=== PATIENT | male | born 1985 | race Hispanic/Latino ===

== ENCOUNTER 2018-11-17 13:55 | Emergency (ER) | payer OTHER, SELFPAY ==
--- NOTE | 2018-11-17 14:44 | RAD REPORT ---
EXAM DESCRIPTION: RAD - Hand Right 3 View - 11/17/2018 2:33 pm CLINICAL HISTORY: Right hand pain status post injury FINDINGS: No acute fracture or dislocation is seen. Old fractures of the fourth and fifth metacarpals
--- NOTE | 2018-11-17 15:22 | EDPHYS ---
Physician Documentation [facility] Name: Aron Marrero Age: 33 yrs Sex: Male : 1985 Arrival Date: 11/17/2018 Time: 13:59 Bed 28 Private MD: Luisito Burnette T ED Physician Corey Chappell HPI: 11/17 15:19 This 33 yrs old Male presents to ER via Ambulatory with complaints of Finger kb Injury. 15:19 The patient or guardian reports a contusion, injury, pain, swelling, tenderness. The kb complaints affect the right index finger. Context: The problem was sustained outdoors, resulted from a crush injury, by a car door. Onset: The symptoms/episode began/occurred 2 day(s) ago. Modifying factors: The symptoms are alleviated by nothing, the symptoms are aggravated by nothing. Associated signs and symptoms: The patient has no apparent associated signs or symptoms. Severity of symptoms: At their worst the symptoms were moderate, in the emergency department the symptoms are unchanged. The patient has not experienced similar symptoms in the past. The patient has not recently seen a physician. Pt reports he smashed his finger in the car door 2 days ago. States his boss put a hole in his nail yesterday and it still bleeds if you apply pressure. "I think it is broken". Historical: - Allergies: 14:05 Haldol; tw2 14:05 venom-honey bee; tw2 - Home Meds: 14:05 losartan-hydrochlorothiazide 100-25 mg Oral tab 1 tab once daily [Active]; tw2 - PMHx: 14:05 Bipolar disorder; Hypertension; Seizures; tw2 - Immunization history:: Adult Immunizations Last tetanus immunization: up to date. - Social history:: Smoking status: Patient uses tobacco products, smokes one pack cigarettes per day. - Ebola Screening: : Patient denies travel to an Ebola-affected area in the 21 days before illness onset. ROS: 15:09 Constitutional: Negative for fever, chills, and weight loss, Cardiovascular: Negative kb for chest pain, palpitations, and edema, Respiratory: Negative for shortness of breath, cough, wheezing, and pleuritic chest pain, Abdomen/GI: Negative for abdominal pain, nausea, vomiting, diarrhea, and constipation, Skin: Negative for injury, rash, and discoloration, Neuro: Negative for headache, weakness, numbness, tingling, and seizure. 15:09 MS/extremity: Positive for ecchymosis, pain, swelling, tenderness, of the right index finger. Exam: 15:09 Constitutional: This is a well developed, well nourished patient who is awake, alert, kb and in no acute distress. Head/Face: Normocephalic, atraumatic. Chest/axilla: Normal chest wall appearance and motion. Nontender with no deformity. No lesions are appreciated. Cardiovascular: Regular rate and rhythm with a normal S1 and S2. No gallops, murmurs, or rubs. Normal PMI, no JVD. No pulse deficits. Respiratory: Lungs have equal breath sounds bilaterally, clear to auscultation and percussion. No rales, rhonchi or wheezes noted. No increased work of breathing, no retractions or nasal flaring. Abdomen/GI: Soft, non-tender, with normal bowel sounds. No distension or tympany. No guarding or rebound. No evidence of tenderness throughout. Neuro: Awake and alert, GCS 15, oriented to person, place, time, and situation. Cranial nerves II-XII grossly intact. Motor strength 5/5 in all extremities. Sensory grossly intact. Cerebellar exam normal. Normal gait. 15:09 Musculoskeletal/extremity: Extremities: grossly normal except: noted in the right index finger: contusion, pain, swelling, tenderness, ROM: limited active range of motion due to pain, in the right index finger, Circulation is intact in all extremities. Sensation intact. Nails: Subungual hematoma, of the right index fingernail. Vital Signs: 14:03 BP 153 / 101; Pulse 78; Resp 18; Temp 98.3(TE); Pulse Ox 99% on R/A; Weight 70.76 kg tw2 (R); Pain 7/10; 14:56 BP 131 / 83; Pulse 65; Resp 19; Pulse Ox 98% on R/A; ca1 15:20 BP 122 / 83; Pulse 68; Resp 19; Pulse Ox 100% on R/A; ca1 MDM: 14:09 Patient medically screened. kb 15:18 Data reviewed: vital signs, nurses notes. Data interpreted: Pulse oximetry: on room air kb is 98 %. Interpretation: normal. Counseling: I had a detailed discussion with the patient and/or guardian regarding: the historical points, exam findings, and any diagnostic results supporting the discharge/admit diagnosis, the need for outpatient follow up, a family practitioner, to return to the emergency department if symptoms worsen or persist or if there are any questions or concerns that arise at home. 11/17 14:12 Order name: Hand Right 3 View XRAY; Complete Time: 14:52 kb Administered Medications: No medications were administered Disposition: 15:37 Co-signature as Attending Physician, Corey Chappell MD I agree with the assessment and aruna plan of care. Disposition: 11/17/18 15:21 Discharged to Home. Impression: Contusion of right index finger with damage to nail - subungual hematoma. - Condition is Stable. - Discharge Instructions: Hand Contusion, [id number], Subungual Hematoma, [id number]. - Medication Reconciliation Form, Thank You Letter, Antibiotic Education, Prescription Opioid Use, Work release form form. - Follow up: Emergency Department; When: As needed; Reason: Worsening of condition. Follow up: Private Physician; When: 2 - 3 days; Reason: Recheck today's complaints, Continuance of care, Re-evaluation by your physician. Signatures: Dispatcher [employer] Mouna Avelar, HEMAL-C HEMAL-Corey Catalan MD MD cha Wise, Tara, RN RN tw2 Tiffanie Ahn RN RN ca1 Corrections: (The following items were deleted from the chart) 15:29 15:21 11/17/2018 15:21 Discharged to Home. Impression: Contusion of right index finger ca1 with damage to nail - subungual hematoma. Condition is Stable. Forms are Work release form, Medication Reconciliation Form, Thank You Letter, Antibiotic Education, Prescription Opioid Use. Follow up: Emergency Department; When: As needed; Reason: Worsening of condition. Follow up: Private Physician; When: 2 - 3 days; Reason: Recheck today's complaints, Continuance of care, Re-evaluation by your physician. kb
--- NOTE | 2018-11-17 15:22 | ER ---
Nurse's Notes [facility] Name: Aron Marrero Age: 33 yrs Sex: Male : 1985 Arrival Date: 11/17/2018 Time: 13:59 Bed 28 Private MD: Luisito Burnette T Diagnosis: Contusion of right index finger with damage to nail-subungual hematoma Presentation: 11/17 14:01 Presenting complaint: Patient states: Friday night i slammed my finger in my car door tw2 and it locked and stayed shut, my right hand first finger , its swollen and purple, Friday my boss heated a needle and poked a hole in the nail to relieve the pressure. Transition of care: patient was not received from another setting of care. Onset of symptoms was November 17, 2018. Risk Assessment: Do you want to hurt yourself or someone else? Patient reports no desire to harm self or others. Initial Sepsis Screen: Does the patient meet any 2 criteria? No. Patient's initial sepsis screen is negative. Does the patient have a suspected source of infection? No. Patient's initial sepsis screen is negative. Care prior to arrival: None. 14:01 Method Of Arrival: Ambulatory tw2 14:01 Acuity: JUSTINE 4 tw2 Triage Assessment: 14:03 General: Appears in no apparent distress. Behavior is calm, cooperative, appropriate tw2 for age. Pain: Complains of pain in dorsal aspect of distal phalanx of right index finger, dorsal aspect of middle phalanx of right index finger and right index fingernail. Musculoskeletal: Circulation, motion, and sensation intact. Range of motion: intact in all extremities. Injury Description: finger was smashed in car door, right index finger. Historical: - Allergies: 14:05 Haldol; tw2 14:05 venom-honey bee; tw2 - Home Meds: 14:05 losartan-hydrochlorothiazide 100-25 mg Oral tab 1 tab once daily [Active]; tw2 - PMHx: 14:05 Bipolar disorder; Hypertension; Seizures; tw2 - Immunization history:: Adult Immunizations Last tetanus immunization: up to date. - Social history:: Smoking status: Patient uses tobacco products, smokes one pack cigarettes per day. - Ebola Screening: : Patient denies travel to an Ebola-affected area in the 21 days before illness onset. Screenin:16 Abuse screen: Denies threats or abuse. Nutritional screening: No deficits noted. tw2 Tuberculosis screening: No symptoms or risk factors identified. Fall Risk None identified. 14:16 Abuse screen: Denies threats or abuse. Denies injuries from another. Nutritional ca1 screening: No deficits noted. Tuberculosis screening: No symptoms or risk factors identified. Fall Risk None identified. Assessment: 14:10 General: Appears in no apparent distress. comfortable, Behavior is calm, cooperative, ca1 appropriate for age. Pain: Complains of pain in right index fingernail Pain currently is 10 out of 10 on a pain scale. Quality of pain is described as throbbing, Pain began 2-3 days ago. Neuro: Level of Consciousness is awake, alert, obeys commands, Oriented to person, place, time, situation. Cardiovascular: Heart tones S1 S2 present Capillary refill < 3 seconds Patient's skin is warm and dry. Respiratory: Airway is patent Respiratory effort is even, unlabored, Respiratory pattern is regular, symmetrical, Breath sounds are clear bilaterally. GI: No deficits noted. No signs and/or symptoms were reported involving the gastrointestinal system. : No deficits noted. No signs and/or symptoms were reported regarding the genitourinary system. EENT: No deficits noted. No signs and/or symptoms were reported regarding the EENT system. Derm: Skin is intact, is healthy with good turgor, Skin is pink, warm \T\ dry. Musculoskeletal: Circulation, motion, and sensation intact. Capillary refill < 3 seconds, Range of motion: limited in right index fingernail Swelling present in right index fingernail. 14:56 Reassessment: Patient appears in no apparent distress at this time. Patient and/or ca1 family updated on plan of care and expected duration. Pain level reassessed. Patient is alert, oriented x 3, equal unlabored respirations, skin warm/dry/pink. 15:20 Reassessment: Patient appears in no apparent distress at this time. Patient is alert, ca1 oriented x 3, equal unlabored respirations, skin warm/dry/pink. Vital Signs: 14:03 BP 153 / 101; Pulse 78; Resp 18; Temp 98.3(TE); Pulse Ox 99% on R/A; Weight 70.76 kg tw2 (R); Pain 7/10; 14:56 BP 131 / 83; Pulse 65; Resp 19; Pulse Ox 98% on R/A; ca1 15:20 BP 122 / 83; Pulse 68; Resp 19; Pulse Ox 100% on R/A; ca1 ED Course: 13:59 Patient arrived in ED. mr 13:59 Luisito Burnette MD is Private Physician. mr 14:03 Triage completed. tw2 14:03 Arm band placed on. tw2 14:07 Bed in low position. Call light in reach. tw2 14:09 Mouna Smith FNP-C is [facility]. kb 14:09 Corey Chappell MD is Attending Physician. kb 14:13 Tiffanie Ahn, RN is Primary Nurse. ca1 14:16 Patient has correct armband on for positive identification. Pulse ox on. NIBP on. ca1 14:28 X-ray completed. Portable x-ray completed in exam room. Patient tolerated procedure ml well. 14:30 Hand Right 3 View XRAY In Process Unspecified. EDMS 15:20 No provider procedures requiring assistance completed. Patient did not have IV access ca1 during this emergency room visit. Administered Medications: No medications were administered Outcome: 15:21 Discharge ordered by MD. kb 15:29 Discharged to home ambulatory. ca1 15:29 Condition: stable 15:29 Discharge instructions given to patient, Instructed on discharge instructions, follow up and referral plans. Demonstrated understanding of instructions, follow-up care. 15:29 Patient left the ED. ca1 Signatures: Dispatcher [employer] EDMS Mouna Smith FNP-C FNP-Ckb Randy Hortensia Pinto, Pepper Cathy Henson, RN RN tw2 Tiffanie Ahn, SUJATHA RN ca1
[2018-11-18 04:54] VITALS: TEMP 98.3
[2018-11-18 04:57] VITALS: BP 122/83; O2SAT 100
== END 2018-11-17 15:29 | disposition home or self-care (01) ==
LOC: ER 13:55
DX: S60.121A Contusion of right index finger with damage to nail, initial encounter (principal); G40.909 Epilepsy, unspecified, not intractable, without status epilepticus; F31.9 Bipolar disorder, unspecified; F17.210 Nicotine dependence, cigarettes, uncomplicated; Z88.5 Allergy status to narcotic agent; Z91.030 Bee allergy status
CPT/HCPCS: 99283

== ENCOUNTER 2019-01-16 11:18 | Emergency (ER) | payer SELFPAY ==
--- NOTE | 2019-01-16 12:09 | RAD REPORT ---
EXAM DESCRIPTION: RAD - Chest Pa And Lat (2 Views) - 01/16/2019 11:59 am CLINICAL HISTORY: Congestion;Cough Chest pain. COMPARISON: CHEST SINGLE VIEW dated 04/30/2015; CHEST SINGLE VIEW dated 12/21/2007 FINDINGS: The lungs are clear. The heart is normal in size. No displaced fractures. IMPRESSION: No acute or concerning finding suspected.
[2019-01-16] MEDS ORDERED: LEVALBUTEROL 1.25 MG/3 ML NEB ONE (12:45)
[2019-01-16] MEDS ORDERED: DEXAMETHASONE 10 MG/ML VIAL ONE (12:46)
--- NOTE | 2019-01-16 13:22 | ER ---
Nurse's Notes [facility] Name: Aron Marrero Age: 33 yrs Sex: Male : 1985 Arrival Date: 01/16/2019 Time: 11:20 Bed 17 Private MD: Diagnosis: Acute bronchitis Presentation: 01/16 11:28 Presenting complaint: Patient states: cough, congestion, wheezing, chest tightness, sv productive yellow cough x 1 week. Transition of care: patient was not received from another setting of care. Onset of symptoms was January 09, 2019. Initial Sepsis Screen: Does the patient meet any 2 criteria? No. Patient's initial sepsis screen is negative. Does the patient have a suspected source of infection? No. Patient's initial sepsis screen is negative. Care prior to arrival: None. 11:28 Method Of Arrival: Ambulatory sv 11:28 Acuity: JUSTINE 3 sv 12:40 Risk Assessment: Do you want to hurt yourself or someone else? Patient reports no em desire to harm self or others. Historical: - Allergies: 11:29 Haldol; sv 11:29 venom-honey bee; sv - PMHx: 11:29 Bipolar disorder; Hypertension; Seizures; sv - Immunization history:: Adult Immunizations up to date. - Social history:: Smoking status: Patient uses tobacco products, smokes one pack cigarettes per day. - Ebola Screening: : No symptoms or risks identified at this time. Screenin:40 Abuse screen: Denies threats or abuse. Nutritional screening: No deficits noted. em Tuberculosis screening: No symptoms or risk factors identified. Fall Risk None identified. Assessment: 12:35 General: Appears in no apparent distress. distressed, Behavior is calm, cooperative, em Denies fever. Pain: Complains of pain in chest Pain currently is 5 out of 10 on a pain scale. Quality of pain is described as "tightness". Neuro: Level of Consciousness is awake, alert, obeys commands, Oriented to person, place, time, situation. Cardiovascular: Capillary refill < 3 seconds Patient's skin is warm and dry. Respiratory: Reports shortness of breath on exertion cough that is non-productive, pain with cough since 5 days Airway is patent Respiratory effort is even, unlabored, Respiratory pattern is regular, symmetrical, Breath sounds are clear bilaterally. EENT: Nares are clear Oral mucosa is moist. Throat is clear is pink Reports nasal congestion. Derm: Skin is intact, is healthy with good turgor, Skin is pink, warm \\T\\ dry. Musculoskeletal: Capillary refill < 3 seconds, Range of motion: intact in all extremities. 12:40 General: The previous assessment is accurate, call light remains within reach.. ss 13:05 Reassessment: Patient appears in no apparent distress at this time. Patient and/or em family updated on plan of care and expected duration. Pain level reassessed. Patient is alert, oriented x 3, equal unlabored respirations, skin warm/dry/pink. Patient states symptoms have improved. Vital Signs: 11:29 BP 152 / 90; Pulse 68; Resp 20; Temp 98.5; Pulse Ox 99% ; Weight 57.15 kg; Height 6 ft. sv 1 in. (185.42 cm); Pain 5/10; 13:06 BP 136 / 90; Pulse 69; Resp 18; Pulse Ox 99% on R/A; em 11:29 Body Mass Index 16.62 (57.15 kg, 185.42 cm) sv ED Course: 11:20 Patient arrived in ED. as 11:29 Triage completed. sv 11:29 Arm band placed on. sv 12:01 Chest Pa And Lat (2 Views) XRAY In Process Unspecified. EDMS 12:22 Wally Bill PA is PHCP. jmm 12:22 Julio Castillo MD is Attending Physician. jmm 12:28 Stevo Sullivan LVN is Primary Nurse. em 12:40 Patient has correct armband on for positive identification. Bed in low position. em 13:37 No provider procedures requiring assistance completed. Patient did not have IV access em during this emergency room visit. Administered Medications: 12:34 Drug: Xopenex (3) 1.25 mg Route: Inhalation; em 13:05 Follow up: Response: No adverse reaction; Marked relief of symptoms em 12:38 Drug: Dexamethasone 10 mg Route: IM; Site: right deltoid; em 13:05 Follow up: Response: No adverse reaction em Outcome: 13:22 Discharge ordered by . jmm 13:37 Discharged to home ambulatory. em 13:37 Condition: good 13:37 Discharge instructions given to patient, Instructed on discharge instructions, follow up and referral plans. medication usage, Demonstrated understanding of instructions, follow-up care, medications, Prescriptions given X 2. 13:38 Patient left the ED. em Signatures: Dispatcher [employer] Sandy Allen, SUJATHA RN Wally Santos PA PA jmm Munoz, Edgar, ASSISTIVE TECHNOLOGY SPECIALIST ASSISTIVE TECHNOLOGY SPECIALIST Yasmeen Herman Shelby, RN RN ss Corrections: (The following items were deleted from the chart) 11:29 11:28 Presenting complaint: Patient states: cough, congestion, wheezing, productive sv yellow cough x 1 week. sv
--- NOTE | 2019-01-16 13:23 | EDPHYS ---
Physician Documentation [facility] Name: Aron Marrero Age: 33 yrs Sex: Male : 1985 Arrival Date: 01/16/2019 Time: 11:20 Bed 17 Private MD: ED Physician Julio Castillo HPI: 01/16 12:20 This 33 yrs old Male presents to ER via Ambulatory with complaints of Cold jmm Symptoms. 12:20 The patient presents to the emergency department with wheezing, Current therapy: None. jmm Onset: The symptoms/episode began/occurred gradually, 1 week(s) ago. Modifying factors: The symptoms are alleviated by nothing, the symptoms are aggravated by nothing. Associated signs and symptoms: Pertinent negatives: chest pain, fever, headache. Patient complains of cough, sinus congestion for the past week. Worse in the mornings. Denies fever or chills. . Historical: - Allergies: 11:29 Haldol; sv 11:29 venom-honey bee; sv - PMHx: 11:29 Bipolar disorder; Hypertension; Seizures; sv - Immunization history:: Adult Immunizations up to date. - Social history:: Smoking status: Patient uses tobacco products, smokes one pack cigarettes per day. - Ebola Screening: : No symptoms or risks identified at this time. ROS: 12:20 Constitutional: Negative for fever, chills, and weight loss, Cardiovascular: Negative jmm for chest pain, palpitations, and edema. 12:20 Respiratory: Positive for cough, wheezing. 12:20 Abdomen/GI: Negative for abdominal pain, nausea and vomiting, diarrhea. 12:20 Neuro: Negative for headache. 12:20 All other systems are negative. Exam: 12:20 Constitutional: This is a well developed, well nourished patient who is awake, alert, jmm and in no acute distress. Head/Face: atraumatic. Eyes: EOMI, no conjunctival erythema appreciated 12:20 Neck: Trachea midline, Supple Chest/axilla: Normal chest wall appearance and motion. 12:20 ENT: Posterior pharynx: erythema, that is mild. 12:20 Cardiovascular: Rate: normal, Rhythm: regular. 12:20 Respiratory: the patient does not display signs of respiratory distress, Respirations: normal, Breath sounds: wheezing: is heard diffusely. 12:20 Abdomen/GI: Inspection: abdomen appears normal, Bowel sounds: normal, Palpation: abdomen is soft and non-tender. 12:20 Back: ROM is normal. 12:20 Musculoskeletal/extremity: ROM: intact in all extremities. 12:20 Neuro: Orientation: is normal, Mentation: is normal, Memory: is normal. 12:20 Psych: Behavior/mood is pleasant, cooperative. Vital Signs: 11:29 BP 152 / 90; Pulse 68; Resp 20; Temp 98.5; Pulse Ox 99% ; Weight 57.15 kg; Height 6 ft. sv 1 in. (185.42 cm); Pain 5/10; 13:06 BP 136 / 90; Pulse 69; Resp 18; Pulse Ox 99% on R/A; em 11:29 Body Mass Index 16.62 (57.15 kg, 185.42 cm) sv MDM: 12:[address] [facility] 13:20 Data reviewed: vital signs, nurses notes. [facility] 13:20 ED course: Decreased wheezing on re auscultation. Patient is alert and non toxic in jmm appearance in the ED. Symptoms appear consistent with bronchitis. Patient is advised to follow up with pcp and otherwise given strict return precautions. Patient understood and agrees with the plan of care. . 06 11:30 Order name: Flu; Complete Time: 12:22 sv 01/16 11:30 Order name: Chest Pa And Lat (2 Views) XRAY; Complete Time: 12:22 sv 01/16 11:30 Order name: EKG; Complete Time: 11:31 sv 01/16 11:30 Order name: EKG - Nurse/Tech; Complete Time: 12:01 sv Administered Medications: 12:34 Drug: Xopenex (3) 1.25 mg Route: Inhalation; em 13:05 Follow up: Response: No adverse reaction; Marked relief of symptoms em 12:38 Drug: Dexamethasone 10 mg Route: IM; Site: right deltoid; em 13:05 Follow up: Response: No adverse reaction em Disposition: 01/16/19 13:22 Discharged to Home. Impression: Acute bronchitis. - Condition is Stable. - Discharge Instructions: Acute Bronchitis, Adult. - Prescriptions for Prednisone 20 mg Oral Tablet - take 3 tablet by ORAL route once daily for 5 days; 15 tablet. Albuterol Sulfate 90 mcg/actuation - inhale 1-2 puff by INHALATION route every 4-6 hours; 1 Inhaler. - Medication Reconciliation Form, Thank You Letter, Antibiotic Education, Prescription Opioid Use form. - Follow up: Private Physician; When: 2 - 3 days; Reason: Recheck today's complaints, Continuance of care, Re-evaluation by your physician. Addendum: 01/18/2019 06:43 Co-signature as Attending Physician, Julio Castillo MD I agree with the assessment and k dr plan of care. Signatures: Dispatcher [employer] Sandy Allen, SUJATHA RN Julio Cruz MD MD kdr Mickail, Joel, PA PA Stevo Rodriguez, SHOTGUN SHELL LOADING MACHINE OPERATOR SHOTGUN SHELL LOADING MACHINE OPERATOR em Corrections: (The following items were deleted from the chart) 01/16 13:38 13:22 01/16/2019 13:22 Discharged to Home. Impression: Acute bronchitis. Condition is em Stable. Forms are Medication Reconciliation Form, Thank You Letter, Antibiotic Education, Prescription Opioid Use. Follow up: Private Physician; When: 2 - 3 days; Reason: Recheck today's complaints, Continuance of care, Re-evaluation by your physician. mary ann
[2019-01-16 13:44] VITALS: TEMP 98.5; O2SAT 99
[2019-01-16 13:45] VITALS: BP 136/90
--- NOTE | 2019-01-16 16:41 | EKG ---
Test Date: 2019-01-16 Test Time: 11:35:45 Battery Repairer: JAMES MEASUREMENT RESULTS: Intervals: Rate: 67 WI: 130 QRSD: 78 QT: 374 QTc: 395 [place]: P: 41 WI: 130 QRS: 60 T: 62 INTERPRETIVE STATEMENTS: Normal sinus rhythm Normal ECG Compared to ECG 07/20/2017 11:17:40 Left ventricular hypertrophy no longer present Electronically Signed On 01-16-19 16:41:09 CDT by Jaskaran Zacarias
== END 2019-01-16 13:38 | disposition home or self-care (01) ==
LOC: ER 11:18
DX: J20.9 Acute bronchitis, unspecified (principal); F31.9 Bipolar disorder, unspecified; I10 Essential (primary) hypertension; Z88.8 Allergy status to other drugs, medicaments and biological substances; Z91.030 Bee allergy status; F17.210 Nicotine dependence, cigarettes, uncomplicated
CPT/HCPCS: 71046; 87804; 93005; 96372; 99284; J1100

== ENCOUNTER 2019-03-29 17:37 | Emergency (ER) | payer OTHER, SELFPAY ==
[2019-03-29] MEDS ORDERED: TETANUS & DIPHTHERIA TOX,ADULT 0.5 ML VIAL ONE (18:10)
[2019-03-29] MEDS ORDERED: DERMABOND SKIN ADHESIVE TOP ONE (18:10)
--- NOTE | 2019-03-29 18:48 | EDPHYS ---
[facility] Name: Aron Marrero Age: 33 yrs Sex: Male : 1985 Arrival Date: 03/29/2019 Time: 17:38 Bed 20 Private MD: ED Physician Corey Chappell HPI: 03/29 18:05 This 33 yrs old Male presents to ER via Ambulatory with complaints of pm1 Laceration To Arm. 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 The laceration(s) is(are) located on the palmar aspect of right wrist. Onset: The symptoms/episode began/occurred just prior to arrival. Associated signs and symptoms: The patient has no apparent associated signs or symptoms, Pertinent negatives: heavy bleeding, numbness distal to injury, suspected foreign body. The patient has not experienced similar symptoms in the past. The patient has not recently seen a physician. Historical: - Allergies: 17:45 Haldol; hj 17:45 venom-honey bee; hj - PMHx: 17:45 Bipolar disorder; Hypertension; Seizures; hj - PSHx: 17:45 None; hj - Immunization history:: Adult Immunizations up to date, Last tetanus immunization: unknown. - Social history:: Smoking status: Patient/guardian denies using tobacco. - Ebola Screening: : No symptoms or risks identified at this time. ROS: 18:05 Constitutional: Negative for fever, chills, and weight loss, Neck: Negative for injury, pm1 pain, and swelling, Cardiovascular: Negative for chest pain, palpitations, and edema, Respiratory: Negative for shortness of breath, cough, wheezing, and pleuritic chest pain, Abdomen/GI: Negative for abdominal pain, nausea, vomiting, diarrhea, and constipation, Back: Negative for injury and pain, MS/Extremity: Negative for injury and deformity. 18:05 Neuro: Negative for headache, weakness, numbness, tingling, and seizure. 18:05 Skin: Positive for laceration(s), of the palmar aspect of right wrist. Exam: 18:05 Constitutional: This is a well developed, well nourished patient who is awake, alert, pm1 and in no acute distress. Head/Face: Normocephalic, atraumatic. Neck: Trachea midline, no thyromegaly or masses palpated, and no cervical lymphadenopathy. Supple, full range of motion without nuchal rigidity, or vertebral point tenderness. No Meningismus. Chest/axilla: Normal chest wall appearance and motion. Nontender with no deformity. No lesions are appreciated. Cardiovascular: Regular rate and rhythm with a normal S1 and S2. No gallops, murmurs, or rubs. Normal PMI, no JVD. No pulse deficits. Respiratory: Lungs have equal breath sounds bilaterally, clear to auscultation and percussion. No rales, rhonchi or wheezes noted. No increased work of breathing, no retractions or nasal flaring. Abdomen/GI: Soft, non-tender, with normal bowel sounds. No distension or tympany. No guarding or rebound. No evidence of tenderness throughout. Back: No spinal tenderness. No costovertebral tenderness. Full range of motion. 18:05 Skin: Appearance: normal except for affected area, injury, skin tear present to palmar aspect of right wrist. Vital Signs: 17:45 BP 150 / 92; Pulse 114; Resp 18; Temp 97.5(TE); Pulse Ox 97% on R/A; Weight 68.04 kg; hj Height 6 ft. 1 in. (185.42 cm); Pain 5/10; 17:45 Body Mass Index 19.79 (68.04 kg, 185.42 cm) hj Laceration: 20:00 Wound Repair of 4cm ( 1.6in ) subcutaneous laceration to palmar aspect of right wrist. pm1 Irregularly shaped.. skin tear. Distal neuro/vascular/tendon intact. Wound prep: Extensive cleansing with hibiclenz by nurse, Wound irrigation with saline by me, Wound explored extensively, Copious irrigation. Skin closed with 1-0 Adhesive skin closure using Dermabond. Dressed with 4x4's. Patient tolerated well. MDM: 17:57 Patient medically screened. pm1 18:43 Data reviewed: vital signs. Data interpreted: Pulse oximetry: on room air is 97 %. pm1 Interpretation: normal. Counseling: I had a detailed discussion with the patient and/or guardian regarding: the historical points, exam findings, and any diagnostic results supporting the discharge/admit diagnosis, the need for outpatient follow up, to return to the emergency department if symptoms worsen or persist or if there are any questions or concerns that arise at home. 03/29 18:02 Order name: Dermabond; Complete Time: 18:14 pm1 03/29 18:02 Order name: Wound Care; Complete Time: 18:14 pm1 Administered Medications: 18:13 Drug: Tetanus-Diphtheria Toxoid Adult 0.5 ml {Button Tacker: [employer]. Exp: bp 11/26/2020. Lot #: [id number]. } Route: IM; Site: right deltoid; Disposition: 03/30 06:47 Co-signature as Attending Physician, Corey Chappell MD I agree with the assessment and aruna plan of care. Disposition: 03/29/19 18:47 Discharged to Home. Impression: Laceration without foreign body of right forearm. - Condition is Stable. - Discharge Instructions: Tissue Adhesive Wound Care. - Prescriptions for Keflex 500 mg Oral Capsule - take 1 capsule by ORAL route every 12 hours for 10 days; 20 capsule. - Work release form, Medication Reconciliation Form, Thank You Letter, Antibiotic Education, Prescription Opioid Use form. - Follow up: Emergency Department; When: As needed; Reason: Worsening of condition. Follow up: Private Physician; When: 2 - 3 days; Reason: Recheck today's complaints, Continuance of care, Re-evaluation by your physician. - Problem is new. - Symptoms have improved. Signatures: Corey Chappell MD MD cha Joaquin, Henry, RN RN Mic Saenz, ROSE BUTTONHOLER pm1 Germán Unger RN RN bp Corrections: (The following items were deleted from the chart) 03/29 18:59 18:47 03/29/2019 18:47 Discharged to Home. Impression: Laceration without foreign body bp of right forearm. Condition is Stable. Forms are Medication Reconciliation Form, Thank You Letter, Antibiotic Education, Prescription Opioid Use. Follow up: Emergency Department; When: As needed; Reason: Worsening of condition. Follow up: Private Physician; When: 2 - 3 days; Reason: Recheck today's complaints, Continuance of care, Re-evaluation by your physician. Problem is new. Symptoms have improved. pm1
--- NOTE | 2019-03-29 18:48 | ER ---
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 Transition of care: patient was not received from another setting of care. Complicating Factors: There are no complicating factors for this patient. Onset of symptoms was March 29, 2019. Risk Assessment: Do you want to hurt yourself or someone else? Patient reports no desire to harm self or others. Initial Sepsis Screen: Does the patient meet any 2 criteria? No. Patient's initial sepsis screen is negative. Does the patient have a suspected source of infection? No. Patient's initial sepsis screen is negative. Care prior to arrival: None. 17:43 Method Of Arrival: Ambulatory 17:43 Acuity: JUSTINE 4 Triage Assessment: 17:53 General: Appears in no apparent distress. comfortable, Behavior is calm, cooperative, bp appropriate for age. Pain: Denies pain. EENT: No deficits noted. Neuro: No deficits noted. Cardiovascular: No deficits noted. Respiratory: No deficits noted. GI: No signs and/or symptoms were reported involving the gastrointestinal system. : No signs and/or symptoms were reported regarding the genitourinary system. Derm: No deficits noted. Musculoskeletal: No deficits noted. Injury Description: Laceration was sustained less than 30 minutes ago. is bleeding no active bleeding noted. Historical: - Allergies: 17:45 Haldol; 17:45 venom-honey bee; - PMHx: 17:45 Bipolar disorder; Hypertension; Seizures; hj - PSHx: 17:45 None; hj - Immunization history:: Adult Immunizations up to date, Last tetanus immunization: unknown. - Social history:: Smoking status: Patient/guardian denies using tobacco. - Ebola Screening: : No symptoms or risks identified at this time. Screenin:56 Abuse screen: Denies threats or abuse. Denies injuries from another. Nutritional bp screening: No deficits noted. Tuberculosis screening: No symptoms or risk factors identified. Fall Risk None identified. Assessment: 17:56 General: SEE TRIAGE NOTE. Injury Description: Avulsion sustained to palmar aspect of bp right wrist is partial was sustained less than 30 minutes ago. 18:58 Reassessment: PT D/C HOME AMBULATORY, DX WITH LACERATION TO R FOREARM. bp 18:59 Injury Description: Laceration is clean. bp Vital Signs: 17:45 BP 150 / 92; Pulse 114; Resp 18; Temp 97.5(TE); Pulse Ox 97% on R/A; Weight 68.04 kg; hj Height 6 ft. 1 in. (185.42 cm); Pain 5/10; 17:45 Body Mass Index 19.79 (68.04 kg, 185.42 cm) ED Course: 17:38 Patient arrived in ED. rg4 17:44 Triage completed. hj 17:45 Arm band placed on left wrist. hj 17:52 Mic Saenz NP is PHCP. pm1 17:52 Corey Chappell MD is Attending Physician. pm1 17:53 Germán Unger RN is Primary Nurse. bp 17:56 Patient has correct armband on for positive identification. Bed in low position. Call bp light in reach. Side rails up X2. 18:47 Assist provider with laceration repair on palmar aspect of right wrist that was between bp 2.6 to 7.5 cm using Dermabond. Set up tray. Performed by Mic Saenz CERTIFIED MEDICAL TECHNICIAN Dressed with Maldonado, Patient tolerated well. Patient did not have IV access during this emergency room visit. Administered Medications: 18:13 Drug: Tetanus-Diphtheria Toxoid Adult 0.5 ml {Utilization Coordinator: [employer]. Exp: bp 11/26/2020. Lot #: [id number]. } Route: IM; Site: right deltoid; Outcome: 18:47 Discharge ordered by MD. pm1 18:58 Discharged to home ambulatory. bp 18:58 Condition: stable 18:58 Discharge instructions given to patient, Instructed on discharge instructions, follow up and referral plans. medication usage, wound care, Demonstrated understanding of instructions, follow-up care, medications, wound care, Prescriptions given X 1. 18:59 Patient left the ED. bp Signatures: Lucio Vera RN RN Mic Saenz NP CERTIFIED MEDICAL TECHNICIAN pm1 Gabriela Bloom rg4 Germán nUger, RN RN bp Corrections: (The following items were deleted from the chart) 17:46 17:45 Pulse 114bpm; Resp 18bpm; Pulse Ox 97% RA; Temp 97.5F Temporal; 68.04 kg; Height hj 6 ft. 1 in.; BMI: 19.7; Pain 5/10; hj
[2019-03-29 23:47] VITALS: BP 150/92; TEMP 97.5; O2SAT 97
== END 2019-03-29 18:59 | disposition home or self-care (01) ==
LOC: ER 17:37
PROC: 0HQDXZZ Repair Right Lower Arm Skin, External Approach (ICD-10-PCS; principal; 2019-03-29)
DX: S61.511A Laceration without foreign body of right wrist, initial encounter (principal); W26.8XXA Contact with other sharp object(s), not elsewhere classified, initial encounter; Z23 Encounter for immunization; I10 Essential (primary) hypertension; F31.9 Bipolar disorder, unspecified; Z88.8 Allergy status to other drugs, medicaments and biological substances; Z91.030 Bee allergy status
CPT/HCPCS: 90471; 90714; 99283

== ENCOUNTER 2019-03-31 07:40 | Emergency (ER) | payer OTHER ==
--- NOTE | 2019-03-31 08:48 | EDPHYS ---
Physician Documentation [facility] Name: Aron Marrero Age: 33 yrs Sex: Male : 1985 Arrival Date: 03/31/2019 Time: 07:46 Bed 13 Private MD: Luisito Burnette T ED Physician Julio Castillo HPI: 03/31 08:01 This 33 yrs old Male presents to ER via Ambulatory with complaints of cp Laceration To Arm. 08:01 The patient has a laceration sharp edge of AC unit. The laceration(s) is(are) located cp on the right wrist. Onset: The symptoms/episode began/occurred 2 day(s) ago. Patient was seen in ED after injury and Dermabond was applied to wound. Patient reports laceration started bleeding today after removing dressing. Historical: - Allergies: 07:52 Haldol; hb 07:52 venom-honey bee; hb - Home Meds: 07:52 losartan-hydrochlorothiazide 100-25 mg Oral tab 1 tab once daily [Active]; hb - PMHx: 07:52 Bipolar disorder; Hypertension; Seizures; hb - PSHx: 07:52 None; hb - Immunization history:: Adult Immunizations up to date. - Social history:: Smoking status: Patient uses tobacco products, smokes two packs cigarettes per day. - Ebola Screening: : No symptoms or risks identified at this time. ROS: 08:03 Constitutional: Negative for fever. cp 08:03 Cardiovascular: Negative for chest pain. 08:03 Respiratory: Negative for cough, shortness of breath. 08:03 Skin: Positive for laceration(s), of the right wrist. 08:03 Neuro: Negative for altered mental status, headache, numbness, tingling, weakness. 08:03 All other systems are negative. Exam: 08:04 Skin: cellulitis, is not appreciated, Wound recheck: laceration right wrist appears w/o cp erythema or gross swelling, mild bleeding noted. Vital Signs: 07:52 BP 139 / 104; Pulse 100; Resp 16; Temp 98.8; Pulse Ox 100% on R/A; Weight 68.04 kg; hb Height 6 ft. 1 in. (185.42 cm); Pain 6/10; 09:00 BP 135 / 85; Pulse 89; Resp 16; Temp 98.8; Pulse Ox 100% ; bp 07:52 Body Mass Index 19.79 (68.04 kg, 185.42 cm) MDM: 07:54 Patient medically screened. cp 08:05 Data reviewed: vital signs, nurses notes, and as a result, I will discharge patient. cp 03/31 08:00 Order name: Wound dressing: clean and dress wound with bacitracin; Complete Time: 08:52 cp Administered Medications: No medications were administered Disposition: 03/31/19 08:07 Discharged to Home. Impression: Encounter for change or removal of nonsurgical wound dressing. - Condition is Stable. - Discharge Instructions: How to Change Your Dressing, Nonsutured Laceration Care, Wound Check, Wound Care. - Medication Reconciliation Form, Thank You Letter, Antibiotic Education, Prescription Opioid Use, Work release form form. - Follow up: Private Physician; When: 48 Hours; Reason: Worsening of condition. - Problem is new. - Symptoms have improved. Signatures: Corey Ruby PA PA cp Ysabel Parnell, SUJATHA RN Germán Unger RN RN bp Corrections: (The following items were deleted from the chart) 09:03 08:07 03/31/2019 08:07 Discharged to Home. Impression: Encounter for change or removal bp of nonsurgical wound dressing. Condition is Stable. Forms are Medication Reconciliation Form, Thank You Letter, Antibiotic Education, Prescription Opioid Use. Follow up: Private Physician; When: 48 Hours; Reason: Worsening of condition. Problem is new. Symptoms have improved. cp
--- NOTE | 2019-03-31 08:49 | ER ---
Nurse's Notes [facility] Name: Aron Marrero Age: 33 yrs Sex: Male : 1985 Arrival Date: 03/31/2019 Time: 07:46 Bed 13 Private MD: Luisito Burnette T Diagnosis: Encounter for change or removal of nonsurgical wound dressing Presentation: 03/31 07:51 Presenting complaint: Seen in ED 2 days ago for laceration to right forearm, today hb wound started bleeding again after he removed the dressing. Transition of care: patient was not received from another setting of care. Complicating Factors: There are no complicating factors for this patient. Onset of symptoms was March 31, 2019. Risk Assessment: Do you want to hurt yourself or someone else? Patient reports no desire to harm self or others. Initial Sepsis Screen: Does the patient meet any 2 criteria? No. Patient's initial sepsis screen is negative. Does the patient have a suspected source of infection? No. Patient's initial sepsis screen is negative. Care prior to arrival: None. 07:51 Method Of Arrival: Ambulatory 07:51 Acuity: JUSTINE 4 hb Triage Assessment: 07:50 General: Appears in no apparent distress. comfortable, Behavior is calm, cooperative, bp appropriate for age. Pain: Denies pain. EENT: No deficits noted. Neuro: No deficits noted. Cardiovascular: No deficits noted. Respiratory: No deficits noted. GI: No signs and/or symptoms were reported involving the gastrointestinal system. : No signs and/or symptoms were reported regarding the genitourinary system. Derm: No deficits noted. Musculoskeletal: No deficits noted. Injury Description: Laceration sustained to palmar aspect of right forearm. Historical: - Allergies: 07:52 Haldol; hb 07:52 venom-honey bee; hb - Home Meds: 07:52 losartan-hydrochlorothiazide 100-25 mg Oral tab 1 tab once daily [Active]; hb - PMHx: 07:52 Bipolar disorder; Hypertension; Seizures; hb - PSHx: 07:52 None; hb - Immunization history:: Adult Immunizations up to date. - Social history:: Smoking status: Patient uses tobacco products, smokes two packs cigarettes per day. - Ebola Screening: : No symptoms or risks identified at this time. Screenin:00 Abuse screen: Denies threats or abuse. Denies injuries from another. Nutritional bp screening: No deficits noted. Tuberculosis screening: No symptoms or risk factors identified. Fall Risk None identified. Assessment: 07:50 General: SEE TRIAGE NOTE. Injury Description: Laceration is clean, not bleeding. bp 09:00 Reassessment: PT D/C HOME AMBULATORY, DX WITH NONSURGICAL WOUND DRESSING. bp Vital Signs: 07:52 BP 139 / 104; Pulse 100; Resp 16; Temp 98.8; Pulse Ox 100% on R/A; Weight 68.04 kg; hb Height 6 ft. 1 in. (185.42 cm); Pain 6/10; 09:00 BP 135 / 85; Pulse 89; Resp 16; Temp 98.8; Pulse Ox 100% ; bp 07:52 Body Mass Index 19.79 (68.04 kg, 185.42 cm) hb ED Course: 07:46 Patient arrived in ED. ag5 07:46 Luisito Burnette MD is Private Physician. ag5 07:52 Triage completed. hb 07:52 Arm band placed on. hb 07:53 Germán Unger, RN is Primary Nurse. bp 07:54 Corey Ruby PA is PHCP. cp 07:54 Julio Castillo MD is Attending Physician. cp 08:00 Patient has correct armband on for positive identification. Bed in low position. Call bp light in reach. Side rails up X2. 08:53 Wound care: to laceration located on palmar aspect of right forearm was cleaned with bp soap and water, dressed with Neosporin, Patient tolerated well. 09:02 No provider procedures requiring assistance completed. Patient did not have IV access bp during this emergency room visit. Administered Medications: No medications were administered Outcome: 08:07 Discharge ordered by MD. cp 09:01 Discharged to home ambulatory. bp 09:01 Condition: stable 09:01 Discharge instructions given to patient, Instructed on discharge instructions, follow up and referral plans. wound care, Demonstrated understanding of instructions, follow-up care, wound care. 09:03 Patient left the ED. bp Signatures: Corey Ruby PA PA cp Baxter, Heather, RN RN Germán Franklin RN RN Ame Mclaughlin ag5
[2019-03-31 11:01] VITALS: TEMP 98.8; O2SAT 100
[2019-03-31 11:03] VITALS: BP 135/85
== END 2019-03-31 09:03 | disposition home or self-care (01) ==
LOC: ER 07:40
DX: Z48.00 Encounter for change or removal of nonsurgical wound dressing (principal); G40.909 Epilepsy, unspecified, not intractable, without status epilepticus; I10 Essential (primary) hypertension; F17.210 Nicotine dependence, cigarettes, uncomplicated; Z88.5 Allergy status to narcotic agent; Z91.030 Bee allergy status

== ENCOUNTER 2020-05-23 17:44 | Emergency (ER) | payer SELFPAY, OTHER ==
[2020-05-23] MEDS ORDERED: HYDROCODONE/APAP 7.5/325 MG TAB ONE (19:28)
[2020-05-23] MEDS ORDERED: IBUPROFEN 400 MG TAB ONE (19:29)
--- NOTE | 2020-05-23 19:46 | ER ---
Nurse's Notes [facility] Name: Aron Marrero Age: 34 yrs Sex: Male : 1985 Arrival Date: 05/23/2020 Time: 17:49 Bed 4 Private MD: Diagnosis: Contusion of right hand;Abrasion of fingers Presentation: 05/23 18:07 Chief complaint: Patient states: Right hand 2nd digit pain and swelling for 2 days. ll1 Tile hit hand after coming off roof. Abrasion noted right hand. Coronavirus screen: Client denies travel out of the [place] in the last 14 days. At this time, the client does not indicate any symptoms associated with coronavirus-19. Ebola Screen: Patient denies travel to an Ebola-affected area in the 21 days before illness onset. Initial Sepsis Screen: Does the patient meet any 2 criteria? HR > 90 bpm. Does the patient have a suspected source of infection? Yes: Skin breakdown/wound. Risk Assessment: Do you want to hurt yourself or someone else? Patient reports no desire to harm self or others. Onset of symptoms was May 22, 2020. 18:07 Method Of Arrival: Ambulatory ll1 18:07 Acuity: JUSTINE 3 ll1 Historical: - Allergies: 18:09 Haldol; ll1 18:09 venom-honey bee; ll1 - PMHx: 18:09 Bipolar disorder; Hypertension; Seizures; ll1 - PSHx: 18:09 None; ll1 - Immunization history:: Flu vaccine is not up to date. - Social history:: Smoking status: Patient reports the use of cigarette tobacco products, smokes one pack cigarettes per day. Screenin:20 Abuse screen: Denies threats or abuse. Nutritional screening: No deficits noted. jb4 Tuberculosis screening: No symptoms or risk factors identified. Fall Risk None identified. Assessment: 19:20 General: Appears in no apparent distress. uncomfortable, Behavior is calm, cooperative, jb4 appropriate for age. Pain: Complains of pain in dorsal aspect of proximal phalanx of right index finger Pain does not radiate. Pain currently is 0 out of 10 on a pain scale. at worst was 8 out of 10 on a pain scale. Quality of pain is described as throbbing. Neuro: Level of Consciousness is awake, alert, obeys commands, Oriented to person, place, time, situation. Cardiovascular: Patient's skin is warm and dry. Respiratory: Airway is patent Respiratory effort is even, unlabored, Respiratory pattern is regular, symmetrical. GI: No signs and/or symptoms were reported involving the gastrointestinal system. : No signs and/or symptoms were reported regarding the genitourinary system. EENT: No signs and/or symptoms were reported regarding the EENT system. Derm: Skin is intact, Skin is pink, warm \T\ dry. Musculoskeletal: Circulation, motion, and sensation intact. Range of motion: intact in all extremities. 20:30 Reassessment: Patient appears in no apparent distress at this time. Patient and/or jb4 family updated on plan of care and expected duration. Pain level reassessed. Patient is alert, oriented x 3, equal unlabored respirations, skin warm/dry/pink. Vital Signs: 18:07 BP 158 / 100; Pulse 97; Resp 18; Temp 98.3; Pulse Ox 97% ; Weight 68.04 kg; Height 6 ll1 ft. 1 in. (185.42 cm); Pain 8/10; 18:07 Body Mass Index 19.79 (68.04 kg, 185.42 cm) ll1 ED Course: 17:49 Patient arrived in ED. bp1 18:09 Triage completed. ll1 18:09 Arm band placed on. ll1 18:59 Corey Ruby PA is PHCP. cp 18:59 Ian Roger MD is Attending Physician. cp 19:10 Celestino Marino, SUJATHA is Primary Nurse. jb4 19:11 Hand Right 3 View XRAY In Process Unspecified. EDMS 19:20 Patient has correct armband on for positive identification. Bed in low position. Call jb4 light in reach. Side rails up X 1. 20:30 No provider procedures requiring assistance completed. Patient did not have IV access jb4 during this emergency room visit. Administered Medications: 10:00 Drug: Ibuprofen 800 mg Route: PO; jb4 19:22 Drug: Hydrocodone-Acetaminophen (7.5 mg-325 mg) 1 tabs {Note: Rass score 0.} Route: PO; jb4 Outcome: 19:45 Discharge ordered by . cp 20:30 Discharged to home ambulatory. jb4 20:30 Condition: stable 20:30 Discharge instructions given to patient, Instructed on discharge instructions, follow up and referral plans. medication usage, Demonstrated understanding of instructions, follow-up care, medications, Prescriptions given X 3. 20:35 Patient left the ED. ll1 Signatures: Dispatcher [employer] EDMS Corey Ruby PA PA cp Bryson, James RN RN jb4 Shefali Gutierrez RN RN ll1 Lisa Dorantes [facility]
--- NOTE | 2020-05-23 19:46 | EDPHYS ---
Physician Documentation [facility] Name: Aron Marrero Age: 34 yrs Sex: Male : 1985 Arrival Date: 05/23/2020 Time: 17:49 Bed 4 Private MD: ED Physician Ian Roger HPI: 05/23 19:05 This 34 yrs old Male presents to ER via Ambulatory with complaints of Finger cp Injury. 19:05 The patient or guardian reports injury, swelling, tenderness. The complaints affect the cp dorsum of right hand. 19:05 Context: resulted from a crush injury, falling tile while at work. cp 19:05 Onset: The symptoms/episode began/occurred 2 day(s) ago. cp Historical: - Allergies: 18:09 Haldol; ll1 18:09 venom-honey bee; ll1 - PMHx: 18:09 Bipolar disorder; Hypertension; Seizures; ll1 - PSHx: 18:09 None; ll1 - Immunization history:: Flu vaccine is not up to date. - Social history:: Smoking status: Patient reports the use of cigarette tobacco products, smokes one pack cigarettes per day. ROS: 19:10 Constitutional: Negative for body aches, chills, fever. cp 19:10 MS/extremity: Positive for contusion, ecchymosis, pain, swelling, tenderness, of the right hand, Negative for paresthesias. 19:10 Skin: Negative for rash. 19:10 Neuro: Negative for numbness, tingling. 19:10 All other systems are negative. Exam: 19:15 Head/Face: Normocephalic, atraumatic. cp 19:15 Constitutional: The patient appears in no acute distress, alert, awake, well developed, well nourished. 19:15 Cardiovascular: Rate: normal. 19:15 Respiratory: the patient does not display signs of respiratory distress, Respirations: normal, no use of accessory muscles, labored breathing, is not present. 19:15 Musculoskeletal/extremity: Extremities: grossly normal except: noted in the dorsal aspect right hand: ecchymosis, pain, swelling, tenderness, noted metacarpal heads of right index and middle fingers, noted in the dorsum right index finger: abrasion, ecchymosis, pain, swelling, tenderness, ROM: limited active range of motion, in the right index finger, limited passive range of motion due to pain, in the right index finger, Perfusion: the extremity is normally perfused throughout, the right hand Sensation intact. Vital Signs: 18:07 BP 158 / 100; Pulse 97; Resp 18; Temp 98.3; Pulse Ox 97% ; Weight 68.04 kg; Height 6 ll1 ft. 1 in. (185.42 cm); Pain 8/10; 18:07 Body Mass Index 19.79 (68.04 kg, 185.42 cm) ll1 Procedures: 20:30 Splinting: Splint applied to right hand using hand splint. applied by tech. Examined by cp me, post splint application: neurovascular intact, Patient tolerated well. MDM: 19:05 Patient medically screened. cp 19:30 Differential diagnosis: dislocation, open fracture, closed fracture, contusion, cp cellulitis. 19:45 Data reviewed: vital signs, nurses notes, radiologic studies, plain films. cp 19:45 Test interpretation: by ED physician or midlevel provider: xrays of right hand negative cp for fracture. Counseling: I had a detailed discussion with the patient and/or guardian regarding: the historical points, exam findings, and any diagnostic results supporting the discharge/admit diagnosis, radiology results, to return to the emergency department if symptoms worsen or persist or if there are any questions or concerns that arise at home. Response to treatment: the patient's symptoms have markedly improved after treatment. 05/23 18:49 Order name: Hand Right 3 View XRAY; Complete Time: 20:26 iw 05/23 20:26 Interpretation: Report reviewed. cp Administered Medications: 10:00 Drug: Ibuprofen 800 mg Route: PO; jb4 19:22 Drug: Hydrocodone-Acetaminophen (7.5 mg-325 mg) 1 tabs {Note: Rass score 0.} Route: PO; jb4 Disposition: 20:00 Chart complete. cp 05/24 00:39 Co-signature as Attending Physician, Ian Roger MD. pkl Disposition: 05/23/20 19:45 Discharged to Home. Impression: Contusion of right hand, Abrasion of fingers. - Condition is Stable. - Discharge Instructions: Hand Contusion. - Prescriptions for Augmentin 875- 125 mg Oral Tablet - take 1 tablet by ORAL route every 12 hours for 10 days; 20 tablet. Ibuprofen 800 mg Oral Tablet - take 1 tablet by ORAL route every 8 hours As needed take with food; 30 tablet. Tylenol- Codeine #3 300-30 mg Oral Tablet - take 2 tablets by ORAL route every 8 hours As needed; 15 tablet. - Medication Reconciliation Form, Thank You Letter, Antibiotic Education, Prescription Opioid Use form. - Follow up: Private Physician; When: 1 - 2 days; Reason: Recheck today's complaints. - Problem is new. - Symptoms have improved. Signatures: Dispatcher [employer] EDAR Ian Roger MD MD pkl Corey Ruby PA PA cp Celestino Marino, SUJATHA RN jb4 Shefali Gutierrez RN RN ll1 Corrections: (The following items were deleted from the chart) 05/23 20:35 19:45 05/23/2020 19:45 Discharged to Home. Impression: Contusion of right hand; ll1 Abrasion of fingers. Condition is Stable. Forms are Medication Reconciliation Form, Thank You Letter, Antibiotic Education, Prescription Opioid Use. Follow up: Private Physician; When: 1 - 2 days; Reason: Recheck today's complaints. Problem is new. Symptoms have improved. cp 05/24 02:18 02:16 MS/extremity: Positive for contusion, ecchymosis, pain, swelling, tenderness, of cp the right hand, Negative for paresthesias, cp 02:18 02:16 Constitutional: Negative for body aches, chills, fever, cp cp 02:18 02:16 Skin: Negative for rash, cp cp 02:18 02:16 All other systems are negative, cp cp : 02:16 Neuro: Negative for numbness, tingling, cp cp :05/23 07:15 Constitutional: The patient appears in no acute distress, alert, awake, cp well developed, well nourished, cp 05/24 02:05/23 07:15 Head/Face: Normocephalic, atraumatic. cp cp 05/24 02:05/23 07:15 Cardiovascular: Rate: normal, cp cp 05/24 02:05/23 07:15 Respiratory: the patient does not display signs of respiratory distress, cp Respirations: normal, no use of accessory muscles, labored breathing, is not present, cp 05/24 02:05/23 07:15 Musculoskeletal/extremity: Extremities: grossly normal except: noted in the cp dorsal aspect right hand: ecchymosis, pain, swelling, tenderness, noted metacarpal heads of right index and middle fingers, noted in the dorsum right index finger: abrasion, ecchymosis, pain, swelling, tenderness, ROM: limited active range of motion, in the right index finger, limited passive range of motion due to pain, in the right index finger, Perfusion: the extremity is normally perfused throughout, the right hand Sensation intact. cp
--- NOTE | 2020-05-23 19:56 | RAD REPORT ---
EXAM DESCRIPTION: RAD - Hand Right 3 View - 05/23/2020 7:15 pm CLINICAL HISTORY: SWELLING, trauma to the second digit COMPARISON: Hand Right 3 View dated 11/17/2018 FINDINGS: No fracture is identified. There is no dislocation or periosteal reaction noted. No forei gn body in the soft tissues. Mild soft tissue swelling of the second digit noted. Configuration of th e fourth and fifth metacarpal suggests remodeling from the remote fracture. The appearance is similar to the 2019 examination. IMPRESSION: Right second digit soft tissue swelling. No acute bone or joint finding.
== END 2020-05-23 20:35 | disposition home or self-care (01) ==
LOC: ER 17:44
DX: S60.410A Abrasion of right index finger, initial encounter (principal); W20.8XXA Other cause of strike by thrown, projected or falling object, initial encounter; Y93.89 Activity, other specified; Y92.89 Other specified places as the place of occurrence of the external cause; Y99.8 Other external cause status; Z88.5 Allergy status to narcotic agent; Z91.030 Bee allergy status; I10 Essential (primary) hypertension; F17.210 Nicotine dependence, cigarettes, uncomplicated
CPT/HCPCS: 99283

== ENCOUNTER 2020-09-20 11:16 | Emergency (ER) | payer SELFPAY, OTHER ==
--- NOTE | 2020-09-20 15:07 | RAD REPORT ---
EXAM DESCRIPTION: RAD - Femur Left - 09/20/2020 2:11 pm CLINICAL HISTORY: Left leg pain FINDINGS: No fracture is seen
--- NOTE | 2020-09-20 15:23 | EDPHYS ---
Physician Documentation [facility] Name: Aron Marrero Age: 35 yrs Sex: Male : 1985 Arrival Date: 09/20/2020 Time: 11:20 Bed 5 Private MD: ED Physician Julio Castillo HPI: 09/20 13:33 This 35 yrs old Male presents to ER via Ambulatory with complaints of Bruised jmm Hip. 13:33 The patient presents with an injury, pain. Onset: The symptoms/episode began/occurred jmm acutely, this morning. Modifying factors: The symptoms are alleviated by nothing. the symptoms are aggravated by movement, weight bearing. Associated signs and symptoms: Pertinent negatives head injury. This is a 35 year old male with a history of bipolar, htn, seizures that presents to the ED with complaints of left hip and thigh pain. Patient states he was helping his friend move furniture and slipped, landing on his right side against concrete stairs. patient denies head injury or loc. . Historical: - Allergies: 11:53 Haldol; sv 11:53 venom-honey bee; sv - PMHx: 11:53 Bipolar disorder; Hypertension; Seizures; sv - PSHx: 11:53 None; sv - Immunization history:: Adult Immunizations up to date. - Social history:: Smoking status: Patient reports the use of cigarette tobacco products, smokes one pack cigarettes per day. ROS: 13:33 Constitutional: Negative for fever, chills, and weight loss, Cardiovascular: Negative jmm for chest pain, palpitations, and edema, Respiratory: Negative for shortness of breath, cough, wheezing, and pleuritic chest pain. 13:33 MS/extremity: Positive for injury or acute deformity. 13:33 All other systems are negative. Exam: 13:33 Constitutional: This is a well developed, well nourished patient who is awake, alert, jmm and in no acute distress. Head/Face: atraumatic. Eyes: EOMI, no conjunctival erythema appreciated ENT: Moist Mucus Membranes Neck: Trachea midline, Supple Chest/axilla: Normal chest wall appearance and motion. Cardiovascular: Regular rate and rhythm. No edema appreciated Respiratory: Normal respirations, no respiratory distress appreciated Abdomen/GI: Non distended, soft Back: Normal ROM 13:33 Skin: large abrasion noted to the left lateral proximal thigh. 13:33 Neuro: Orientation: is normal, Mentation: is normal, Memory: is normal. 13:33 Psych: Behavior/mood is pleasant, cooperative. Vital Signs: 11:53 BP 124 / 72; Pulse 91; Resp 16; Temp 97.8; Pulse Ox 100% ; Weight 72.57 kg; Height 6 sv ft. 1 in. (185.42 cm); 11:53 Body Mass Index 21.11 (72.57 kg, 185.42 cm) sv MDM: 13:27 Patient medically screened. [facility] 15:21 Data reviewed: vital signs, nurses notes. Counseling: I had a detailed discussion with [facility] the patient and/or guardian regarding: the historical points, exam findings, and any diagnostic results supporting the discharge/admit diagnosis, radiology results, the need for outpatient follow up, to return to the emergency department if symptoms worsen or persist or if there are any questions or concerns that arise at home. ED course: Xray negative. advised to follow up with pcp and otherwise given strict return precautions. patient understood and agrees with the plan of care. . 09/20 13:32 Order name: Femur Left XRAY; Complete Time: 15:21 [facility] Administered Medications: No medications were administered Disposition: 09/21 06:00 Co-signature as Attending Physician, Julio Castillo MD I agree with the assessment and kdr plan of care. Disposition: 09/20/20 15:22 Discharged to Home. Impression: Left Leg Abrasion. - Condition is Stable. - Discharge Instructions: Abrasion. - Work release form, Medication Reconciliation Form, Thank You Letter, Antibiotic Education, Prescription Opioid Use form. - Follow up: Private Physician; When: 2 - 3 days; Reason: Recheck today's complaints, Continuance of care, Re-evaluation by your physician. Signatures: Dispatcher [employer] EDMS Sandy Conner RN RN sv Rittger, Kevin, MD MD kdr Mickail, Joel, PA PA jmm Smirch, Shelby, RN RN ss Corrections: (The following items were deleted from the chart) 09/20 13:52 13:32 Hip Left 2 View+RAD.RAD.BRZ ordered. EDNJ EDNJ 15:42 15:22 09/20/2020 15:22 Discharged to Home. Impression: Left Leg Abrasion. Condition is ss Stable. Forms are Medication Reconciliation Form, Thank You Letter, Antibiotic Education, Prescription Opioid Use. Follow up: Private Physician; When: 2 - 3 days; Reason: Recheck today's complaints, Continuance of care, Re-evaluation by your physician. mary ann
--- NOTE | 2020-09-20 15:23 | ER ---
Nurse's Notes [facility] Name: Aron Marrero Age: 35 yrs Sex: Male : 1985 Arrival Date: 09/20/2020 Time: 11:20 Bed 5 Private MD: Diagnosis: Left Leg Abrasion Presentation: 09/20 11:52 Chief complaint: Patient states: left hip pain after slipping on some concrete stairs. sv Pt went to work this morning but was sent home and his job needs a work note. Coronavirus screen: Client denies travel out of the [place] in the last 14 days. At this time, the client does not indicate any symptoms associated with coronavirus-19. Ebola Screen: No symptoms or risks identified at this time. Risk Assessment: Do you want to hurt yourself or someone else? Patient reports no desire to harm self or others. Onset of symptoms was September 20, 2020. 11:52 Method Of Arrival: Ambulatory sv 11:52 Acuity: JUSTINE 4 sv 11:53 Initial Sepsis Screen: Does the patient meet any 2 criteria? No. Patient's initial sv sepsis screen is negative. Does the patient have a suspected source of infection? No. Patient's initial sepsis screen is negative. Triage Assessment: 11:55 General: Appears in no apparent distress. uncomfortable, Behavior is calm, cooperative, sv appropriate for age. Pain: Complains of pain in left hip. Neuro: Level of Consciousness is awake, alert, obeys commands, Oriented to person, place, time, situation, Gait is steady. Respiratory: Respiratory effort is even, unlabored. Historical: - Allergies: 11:53 Haldol; sv 11:53 venom-honey bee; sv - PMHx: 11:53 Bipolar disorder; Hypertension; Seizures; sv - PSHx: 11:53 None; sv - Immunization history:: Adult Immunizations up to date. - Social history:: Smoking status: Patient reports the use of cigarette tobacco products, smokes one pack cigarettes per day. Screenin:56 Abuse screen: Denies threats or abuse. Denies injuries from another. Nutritional hb screening: No deficits noted. Tuberculosis screening: No symptoms or risk factors identified. Fall Risk None identified. Assessment: 14:00 General: Appears in no apparent distress. Behavior is calm, cooperative. Pain: Pain hb currently is 5 out of 10 on a pain scale. Neuro: Level of Consciousness is awake, alert, obeys commands, Oriented to person, place, time, situation. Cardiovascular: Capillary refill < 3 seconds Patient's skin is warm and dry. Respiratory: Airway is patent Respiratory effort is even, unlabored, Respiratory pattern is regular, symmetrical. GI: No signs and/or symptoms were reported involving the gastrointestinal system. : No signs and/or symptoms were reported regarding the genitourinary system. EENT: No signs and/or symptoms were reported regarding the EENT system. Derm: Skin is pink, warm \T\ dry. Musculoskeletal: Reports left hip pain. 14:00 Reassessment: Patient appears in no apparent distress at this time. Patient and/or hb family updated on plan of care and expected duration. Pain level reassessed. Patient is alert, oriented x 3, equal unlabored respirations, skin warm/dry/pink. 15:00 Reassessment: Patient appears in no apparent distress at this time. Patient and/or hb family updated on plan of care and expected duration. Pain level reassessed. Patient is alert, oriented x 3, equal unlabored respirations, skin warm/dry/pink. Vital Signs: 11:53 BP 124 / 72; Pulse 91; Resp 16; Temp 97.8; Pulse Ox 100% ; Weight 72.57 kg; Height 6 sv ft. 1 in. (185.42 cm); 11:53 Body Mass Index 21.11 (72.57 kg, 185.42 cm) sv ED Course: 11:20 Patient arrived in ED. mr 11:53 Triage completed. sv 11:53 Arm band placed on. sv 13:26 Wally Bill PA is PHCP. jmm 13:26 Julio Castillo MD is Attending Physician. jmm 13:40 Ysabel Parnell, SUJATHA is Primary Nurse. hb 14:16 Femur Left XRAY In Process Unspecified. EDMS 14:56 Patient has correct armband on for positive identification. Bed in low position. Call hb light in reach. 15:41 No provider procedures requiring assistance completed. Patient did not have IV access ss during this emergency room visit. Administered Medications: No medications were administered Outcome: 15:22 Discharge ordered by . [facility] 15:41 Discharged to home ambulatory. ss 15:41 Condition: good 15:41 Discharge instructions given to patient, Instructed on discharge instructions, follow up and referral plans. Demonstrated understanding of instructions, follow-up care. 15:42 Patient left the ED. ss Signatures: Dispatcher [employer] Sandy Allen, RN RN Wally Santos PA PA jmm Padilla, Hortensia mr RosarioGabby RN RN ss Baxter, Heather, RN RN Corrections: (The following items were deleted from the chart) 11:55 11:53 Resp 16bpm; Pulse Ox 100%; Temp 97.8F; 72.57 kg; Height 6 ft. 1 in.; BMI: 21.1; svsv
[2020-09-20 16:09] VITALS: BP 124/72; TEMP 97.8; O2SAT 100
== END 2020-09-20 15:42 | disposition home or self-care (01) ==
LOC: ER 11:16
DX: S80.812A Abrasion, left lower leg, initial encounter (principal); W01.0XXA Fall on same level from slipping, tripping and stumbling without subsequent striking against object, initial encounter; Y93.89 Activity, other specified; Y92.9 Unspecified place or not applicable; Z88.5 Allergy status to narcotic agent; Z91.030 Bee allergy status; F17.210 Nicotine dependence, cigarettes, uncomplicated; I10 Essential (primary) hypertension
CPT/HCPCS: 99283

== ENCOUNTER 2020-10-18 22:24 | Emergency (ER) | payer OTHER, SELFPAY ==
[2020-10-18 22:52] LABS: Absolute Lymphocytes (CBC) 2.8 K/uL (0.7-4.9); Basophils % 0.5 % (0-1.3); Hematocrit 45.9 % (39.6-49.0); Lymphocytes % 23.3 % (15.3-44.8); MPV 7.6 fL (7.6-11.3); RBC Red Blood Cell Count 4.78 M/uL (4.33-5.43)
[2020-10-18 23:02] LABS: Protime INR 0.92
[2020-10-18] MEDS ORDERED: DIAZEPAM 10 MG/2 ML INJ SYRINGE ONE (23:03)
[2020-10-18 23:17] LABS: ALT/SGPT 45 U/L (12-78); AST/SGOT 66 U/L (15-37); Albumin 4.6 g/dL (3.4-5.0); Alkaline Phosphatase 120 U/L (45-117); BUN Blood Urea Nitrogen 3 mg/dL (7-18); Bicarbonate 23 mmol/L (21-32); Bilirubin Direct 0.1 mg/dL (0-0.2); Bilirubin Total 0.6 mg/dL (0.2-1.0); Glucose Level 72 mg/dL (74-106); Magnesium 2.2 mg/dL (1.8-2.4); NT PRO-BNP 43 pg/mL (<125); Potassium 3.8 mmol/L (3.5-5.1); Protein, Total 9.3 g/dL (6.4-8.2); Sodium Level 138 mmol/L (136-145); Troponin (Emerg Dept Use Only) < 0.02 ng/mL (0.0-0.045)
--- NOTE | 2020-10-19 00:40 | ER ---
Nurse's Notes [facility] Name: Aron Marrero Age: 35 yrs Sex: Male : 1985 Arrival Date: 10/18/2020 Time: 22:24 Bed 19 Private MD: Diagnosis: Chest pain, unspecified Presentation: 10/18 22:25 Chief complaint: Patient states: Yesterday I smoke some weed laced with meth. About 45 jb4 minutes ago my chest started hurting and both my arms are numb, I feel short of breath and I just feel like I am having a heart attack. 22:25 Coronavirus screen: Client denies travel out of the [place] in the last 14 days. At this jb4 time, the client does not indicate any symptoms associated with coronavirus-19. Ebola Screen: No symptoms or risks identified at this time. Initial Sepsis Screen: Does the patient meet any 2 criteria? RR > 20 per min. Does the patient have a suspected source of infection? No. Patient's initial sepsis screen is negative. Risk Assessment: Do you want to hurt yourself or someone else? Patient reports no desire to harm self or others. Onset of symptoms was October 18, 2020. Transition of care: patient was not received from another setting of care. 22:25 Method Of Arrival: Wheelchair jb4 22:25 Acuity: JUSTINE 3 jb4 Historical: - Allergies: 22:25 Haldol; jb4 22:25 venom-honey bee; jb4 - Home Meds: 22:25 None [Active]; jb4 - PMHx: 22:25 Bipolar disorder; Hypertension; Seizures; ADD/ADHD; jb4 - PSHx: 22:25 None; jb4 - Immunization history:: Adult Immunizations up to date. - Social history:: Smoking status: Patient denies any tobacco usage or history of. Patient uses alcohol, occasionally. street drugs, marijuana. Screenin:25 Abuse screen: Denies threats or abuse. Nutritional screening: No deficits noted. jb4 Tuberculosis screening: No symptoms or risk factors identified. Fall Risk None identified. Assessment: 22:25 General: Appears in no apparent distress. uncomfortable, Behavior is cooperative, jb4 anxious. Pain: Complains of pain in chest Pain radiates to right arm and left arm Pain currently is 10 out of 10 on a pain scale. 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 22:25 Neuro: Level of Consciousness is awake, alert, obeys commands, Oriented to person, banner place, time, situation. Cardiovascular: Patient's skin is warm and dry. Respiratory: Airway is patent Respiratory effort is even, unlabored, Respiratory pattern is regular, symmetrical. GI: No signs and/or symptoms were reported involving the gastrointestinal system. : No signs and/or symptoms were reported regarding the genitourinary system. EENT: No signs and/or symptoms were reported regarding the EENT system. Derm: Skin is intact, Skin is pink, warm \T\ dry. Musculoskeletal: Circulation, motion, and sensation intact. Range of motion: intact in all extremities. 23:30 Reassessment: Patient appears in no apparent distress at this time. Patient and/or jb4 family updated on plan of care and expected duration. Pain level reassessed. Patient is alert, oriented x 3, equal unlabored respirations, skin warm/dry/pink. Patient states feeling better. Patient states symptoms have improved. 10/19 01:04 Reassessment: Patient appears in no apparent distress at this time. Patient and/or jb4 family updated on plan of care and expected duration. Pain level reassessed. Patient is alert, oriented x 3, equal unlabored respirations, skin warm/dry/pink. Patient states feeling better. Vital Signs: 10/18 22:25 BP 179 / 116; Pulse 116; Resp 21; Temp 98.1(O); Pulse Ox 98% on R/A; Weight 74.84 kg banner (R); Height 6 ft. 1 in. (185.42 cm) (R); Pain 10/10; 23:30 BP 163 / 97; Pulse 70; Resp 20; Pulse Ox 98% ; banner 10/19 00:45 BP 152 / 102; Pulse 72; Resp 20; Pulse Ox 100% on R/A; banner 10/18 22:25 Body Mass Index 21.77 (74.84 kg, 185.42 cm) banner ED Course: 10/18 22:24 Patient arrived in ED. cl3 22:24 Celestino Marino RN is Primary Nurse. 4 22:25 Wally Bill PA is PHCP. jmm 22:25 Corey Chappell MD is Attending Physician. jmm 22:25 Arm band placed on right wrist. jb4 22:25 Patient has correct armband on for positive identification. Bed in low position. Call banner light in reach. Side rails up X 1. security monitor on. Pulse ox on. NIBP on. 22:40 Initial lab(s) drawn, by mn, sent to lab. Inserted saline lock: 18 gauge in right jb antecubital area, using aseptic technique. Blood collected. 23:03 Triage completed. jb4 23:15 XRAY Chest (1 view) In Process Unspecified. EDMS 10/19 00:07 CT Chest For PE Angio In Process Unspecified. EDMS 01:05 No provider procedures requiring assistance completed. IV discontinued, intact, jb4 bleeding controlled, No redness/swelling at site. Pressure dressing applied. 01:12 Primary Nurse role handed off by Celestino Marino, RN [place] 01:12 PHCP role handed off by Wally Bill PA jb4 Administered Medications: 10/18 22:53 Drug: Valium 5 mg Route: IVP; Site: right antecubital; jb4 23:36 Follow up: Response: No adverse reaction; Marked relief of symptoms jb4 Outcome: 10/19 00:39 Discharge ordered by . jm 01:05 Discharged to home ambulatory. jb4 01:05 Condition: stable 01:05 Discharge instructions given to patient, Instructed on discharge instructions, follow up and referral plans. medication usage, Demonstrated understanding of instructions, follow-up care, medications, Prescriptions given X 1. 01:05 Patient left the ED. jb4 01:13 Patient left the ED. jb4 Signatures: Dispatcher [employer] EDMO Wally Bill PA PA Celestino Simms, RN RN Mary Whitfield cl3 Corrections: (The following items were deleted from the chart) 01:05 00:45 No provider procedures requiring assistance completed. jb4 jb4 01:05 00:45 IV discontinued, intact, bleeding controlled, No redness/swelling at site. jb4 Pressure dressing applied, jb4
--- NOTE | 2020-10-19 00:40 | EDPHYS ---
Physician Documentation [facility] Name: Aron Marrero Age: 35 yrs Sex: Male : 1985 Arrival Date: 10/18/2020 Time: 22:24 Bed 19 Private MD: ED Physician Corey Chappell HPI: 10/18 22:30 This 35 yrs old Male presents to ER via Unassigned with complaints of Numbness jmm Of Arm, Dizziness. 22:30 The patient or guardian complains of numbness. Onset: The symptoms/episode jmm began/occurred .5 hour(s) ago. Modifying factors: The symptoms are alleviated by nothing. the symptoms are aggravated by nothing. This is a 35 year old male with a history of epilepsy that presents to the ED with complaints of numbness to both arms, chest pain and shortness of breath beginning acutely approx 30 minutes ago. Patient states he did smoke marijuana laced with meth last night. . Historical: - Allergies: 22:25 Haldol; jb4 22:25 venom-honey bee; jb4 - Home Meds: 22:25 None [Active]; jb4 - PMHx: 22:25 Bipolar disorder; Hypertension; Seizures; ADD/ADHD; jb4 - PSHx: 22:25 None; jb4 - Immunization history:: Adult Immunizations up to date. - Social history:: Smoking status: Patient denies any tobacco usage or history of. Patient uses alcohol, occasionally. street drugs, marijuana. ROS: 22:30 Constitutional: Negative for fever, chills, and weight loss. jmm 22:30 Cardiovascular: Positive for chest pain. 22:30 Respiratory: Positive for shortness of breath. 22:30 MS/extremity: Positive for paresthesias. 22:30 All other systems are negative. Exam: 22:30 Head/Face: atraumatic. Eyes: EOMI, no conjunctival erythema appreciated ENT: Moist jmm Mucus Membranes 22:30 Chest/axilla: Normal chest wall appearance and motion. 22:30 Respiratory: Normal respirations, no respiratory distress appreciated Abdomen/GI: Non distended, soft Back: Normal ROM Skin: General appearance color normal MS/ Extremity: Moves all extremities, no obvious deformities appreciated, no edema noted to the lower extremities Neuro: Awake and alert, normal gait Psych: Behavior is normal, Mood is normal, Patient is cooperative and pleasant 22:30 Constitutional: The patient appears alert, awake, anxious. 22:30 Cardiovascular: Rate: tachycardic, Rhythm: regular. Vital Signs: 22:25 BP 179 / 116; Pulse 116; Resp 21; Temp 98.1(O); Pulse Ox 98% on R/A; Weight 74.84 kg 4 (R); Height 6 ft. 1 in. (185.42 cm) (R); Pain 10/10; 23:30 BP 163 / 97; Pulse 70; Resp 20; Pulse Ox 98% ; [facility] 10/19 00:45 BP 152 / 102; Pulse 72; Resp 20; Pulse Ox 100% on R/A; [facility] 10/18 22:25 Body Mass Index 21.77 (74.84 kg, 185.42 cm) [facility] MDM: 10/18 22:30 Patient medically screened. [facility] 10/19 00:37 Data reviewed: vital signs, nurses notes. Counseling: I had a detailed discussion with [facility] the patient and/or guardian regarding: the historical points, exam findings, and any diagnostic results supporting the discharge/admit diagnosis, lab results, radiology results, the need for outpatient follow up, to return to the emergency department if symptoms worsen or persist or if there are any questions or concerns that arise at home. ED course: Patient states feeling much better after anxilytic. Most likely panic attack. Low likelihood for ACS. CTA reveals no definite PE. Patient is otherwise given strict return precautions. Patient understood and agrees with the plan of care. . 10/18 22:35 Order name: Basic Metabolic Panel [facility] 10/18 22:35 Order name: CBC with Diff [facility] 10/18 22:35 Order name: LFT's [facility] 10/18 22:35 Order name: Magnesium [facility] 10/18 22:35 Order name: NT PRO-BNP [facility] 10/18 22:35 Order name: PT-INR [facility] 10/18 22:35 Order name: Troponin (emerg Dept Use Only) [facility] 10/18 22:35 Order name: Urine Drug Screen [facility] 10/18 22:35 Order name: Basic Metabolic Panel; Complete Time: 23:30 [facility] 10/18 22:35 Order name: CBC with Automated Diff; Complete Time: 22:57 [facility] 10/18 22:35 Order name: Liver (Hepatic) Function; Complete Time: 23:30 [facility] 10/18 23:05 Order name: Protime (+INR); Complete Time: 23:05 [facility] 10/18 23:27 Order name: Troponin (Emerg Dept Use Only); Complete Time: 23:30 [facility] 10/18 22:35 Order name: XRAY Chest (1 view) [facility] 10/18 22:35 Order name: EKG; Complete Time: 22:36 [facility] 10/18 22:35 Order name: Cardiac monitoring; Complete Time: 22:53 [facility] 10/18 22:35 Order name: EKG - Nurse/Tech; Complete Time: 22:53 [facility] 10/18 22:35 Order name: IV Saline Lock; Complete Time: 22:53 [facility] 10/18 22:35 Order name: Labs collected and sent; Complete Time: 22:53 [facility] 10/18 22:35 Order name: O2 Per Protocol; Complete Time: 22:54 [facility] 10/18 22:35 Order name: O2 Sat Monitoring; Complete Time: 22:54 [facility] 10/18 23:05 Order name: CT Chest For PE Angio [facility] 10/18 23:27 Order name: NT PRO-BNP; Complete Time: 23:30 [facility] 10/18 23:27 Order name: Magnesium; Complete Time: 23:30 [facility] 10/18 23:29 Order name: D-Dimer [facility] 10/19 00:16 Order name: Urine Dipstick--Ancillary (enter results) ar5 Administered Medications: 10/18 22:53 Drug: Valium 5 mg Route: IVP; Site: right antecubital; 4 23:36 Follow up: Response: No adverse reaction; Marked relief of symptoms jb4 Disposition: 10/19 22:20 Co-signature as Attending Physician, Corey Chappell MD I agree with the assessment and aruna plan of care. Disposition: 10/19/20 00:39 Discharged to Home. Impression: Chest pain, unspecified. - Condition is Stable. - Discharge Instructions: Nonspecific Chest Pain. - Prescriptions for Ativan 0.5 mg Oral Tablet - take 1 tablet by ORAL route every 8 hours As needed; 12 tablet. - Work release form, Medication Reconciliation Form, Thank You Letter, Antibiotic Education, Prescription Opioid Use form. - Follow up: Private Physician; When: 2 - 3 days; Reason: Recheck today's complaints, Continuance of care, Re-evaluation by your physician. Signatures: Dispatcher [employer] [facility] Corey Chappell MD MD cha Mickail, Joel, PA PA Celestino Simms, RN RN jb4 Corrections: (The following items were deleted from the chart) 10/18 23:29 22:38 D-DIMER+COAG.LAB.BRZ ordered. [facility] 10/19 01:05 00:39 10/19/2020 00:39 Discharged to Home. Impression: Chest pain, unspecified. jb4 Condition is Stable. Forms are Medication Reconciliation Form, Thank You Letter, Antibiotic Education, Prescription Opioid Use. Follow up: Private Physician; When: 2 - 3 days; Reason: Recheck today's complaints, Continuance of care, Re-evaluation by your physician. [facility] 01:13 01:05 10/19/2020 00:39 Discharged to Home. Impression: Chest pain, unspecified. jb4 Condition is Stable. Discharge Instructions: Nonspecific Chest Pain. Prescriptions for Ativan 0.5 mg Oral Tablet - take 1 tablet by ORAL route every 8 hours As needed; 12 tablet. and Forms are Medication Reconciliation Form, Thank You Letter, Antibiotic Education, Prescription Opioid Use, Work release form. Follow up: Private Physician; When: 2 - 3 days; Reason: Recheck today's complaints, Continuance of care, Re-evaluation by your physician. jb4
[2020-10-19 01:08] LABS: Urine Blood TRACE (NEG); Urine Glucose NEGATIVE (NEG); Urine Protein NEGATIVE (NEG); Urine Specific Gravity 1.015 (1.005-1.030)
[2020-10-19 01:13] LABS: Barbiturates NEGATIVE (NEGATIVE); Benzodiazepines NEGATIVE (NEGATIVE); Cocaine NEGATIVE (NEGATIVE); METHAMPHETAM POSITIVE (NEGATIVE); Methadone NEGATIVE (NEGATIVE); Opiates NEGATIVE (NEGATIVE); Phencyclidine NEGATIVE (NEGATIVE); THC Cannibis NEGATIVE (NEGATIVE)
--- NOTE | 2020-10-19 08:11 | RAD REPORT ---
EXAM DESCRIPTION: RAD - Chest Single View - 10/18/2020 10:54 pm CLINICAL HISTORY: chest pain, sob COMPARISON: Portable April 2015. Technical issues precluded access to the 2019 study. TECHNIQUE: AP portable chest image was obtained 10/18/2020 10:54 pm . FINDINGS: No focal mass or consolidation. Interstitial pattern is slightly increased from 2015. In a patient this age this is not typically progressive lung disease but could reflect a mild interstitia l edema or infiltrate. Heart and vasculature are normal. No measurable pleural effusion and no pneumo thorax. No acute bony abnormality seen. No acute aortic findings suspected. IMPRESSION: No focal mass or consolidation. Interstitial pattern is increased from 2015 (2019 exam not available) which is in part due to a more shallow inspiration. Minimal interstitial edema or infiltrate cannot be excluded.
[2020-10-19 10:34] VITALS: BP 152/102; TEMP 98.1; O2SAT 100
--- NOTE | 2020-10-19 11:05 | RAD REPORT ---
EXAM DESCRIPTION: CT - Chest For Pe Angio - 10/19/2020 12:06 am CLINICAL HISTORY: 35 years Male SOB COMPARISON: None. TECHNIQUE: Contiguous axial images obtained through the chest during the infusion of IV contrast. Re formatted images obtained. MIP reformatted images obtained. This exam was performed according to our department optimization program which includes automated exp osure control, adjustment of the mA and/or kv according to patient size and/or use of iterative recon struction technique. FINDINGS: The visualized upper abdominal organs appear unremarkable. No pericardial effusion. Small amount of soft tissue in the anterior mediastinum consistent with thymic tissue. No evidence for thoracic aortic dissection. The contrast bolus timing is suboptimal for pulmonary embolism evaluation. There is motion artifact o n the images. No definite pulmonary emboli in the main pulmonary arteries. The other branches are not well evaluated. Repeat study or VQ scanning is recommended if symptoms persist. There are paraseptal apical blebs. No consolidating infiltrates or pleural effusions. No pneumothor ax. IMPRESSION: The contrast bolus timing is markedly suboptimal and there is motion artifact on the marychuy ges which markedly limits evaluation of the pulmonary arteries. No large central pulmonary embolus is identified in the main pulmonary arteries. The peripheral branches are not well evaluated. Repeat st udy or VQ scanning is recommended if symptoms persist. The findings were discussed with Dr. Wally cheung at 12:31 AM central time. Electronically signed by: Ha Carrero MD 10/19/2020 12:37 AM LPN Due to temporary technical issues with the PACS/Fluency reporting system, reports are being signed by the in house radiologists without review as a courtesy to insure prompt reporting. The interpreting radiologist is fully responsible for the content of the report.
== END 2020-10-19 01:13 | disposition home or self-care (01) ==
LOC: ER 22:24
DX: R07.9 Chest pain, unspecified (principal); R20.0 Anesthesia of skin; R42 Dizziness and giddiness; R06.02 Shortness of breath; F31.9 Bipolar disorder, unspecified; I10 Essential (primary) hypertension; F90.9 Attention-deficit hyperactivity disorder, unspecified type; G40.909 Epilepsy, unspecified, not intractable, without status epilepticus
CPT/HCPCS: 36415; 71045; 71275; 80048; 80076; 80307; 81003; 83735; 83880; 84484; 85025; 85379; 85610; 93005; 96374; 99284; J3360; Q9967

== ENCOUNTER 2020-11-09 16:31 | Emergency (ER) | payer OTHER, SELFPAY ==
--- NOTE | 2020-11-09 17:57 | ER ---
Nurse's Notes [facility] Name: Aron Marrero Age: 35 yrs Sex: Male : 1985 Arrival Date: 11/09/2020 Time: 16:36 Bed Waiting Private MD: Diagnosis: Presentation: 11/09 16:55 Chief complaint: Patient states: Had panic attacks for 3 days now. Went to PCP ca1 yesterday and was prescribed Valium 10 mg. Took 1 tab last night and was able to sleep. Had another panic attack at work today that it hurts to breathe and I get SOB. Did not take Valium today. 16:55 Coronavirus screen: Client denies travel out of the [place] in the last 14 days. shortness ca1 of breath, Client presents with at least one sign or symptom that may indicate coronavirus-19. Standard/surgical mask placed on the client. Provider contacted for isolation considerations. Ebola Screen: Patient negative for fever greater than or equal to 101.5 degrees Fahrenheit, and additional compatible Ebola Virus Disease symptoms Patient denies exposure to infectious person. Patient denies travel to an Ebola-affected area in the 21 days before illness onset. No symptoms or risks identified at this time. Initial Sepsis Screen: Does the patient meet any 2 criteria? No. Patient's initial sepsis screen is negative. Does the patient have a suspected source of infection? No. Patient's initial sepsis screen is negative. Risk Assessment: Do you want to hurt yourself or someone else? Patient reports no desire to harm self or others. Onset of symptoms was November 09, 2020. 16:55 Method Of Arrival: Ambulatory ca1 16:55 Acuity: JUSTINE 3 ca1 17:54 Note Called pt, he states, "I feel better now. I know it was just a panic attack. I ca1 have dealt with it before and I have the medication prescribed by my doctor yesterday. Thank y'all". Historical: - Allergies: 17:05 Haldol; ca1 17:05 venom-honey bee; ca1 - PMHx: 17:05 ADD/ADHD; Bipolar disorder; Hypertension; Seizures; ca1 - PSHx: 17:05 None; ca1 - Immunization history:: Flu vaccine is not up to date. - Social history:: Smoking status: Patient reports the use of cigarette tobacco products, smokes one pack cigarettes per day. Vital Signs: 16:55 BP 140 / 102; Pulse 80; Resp 18 S; Temp 97.6(TE); Pulse Ox 100% on R/A; Weight 70.31 kg ca1 (R); Height 6 ft. 1 in. (185.42 cm) (R); Pain 0/10; 16:55 Body Mass Index 20.45 (70.31 kg, 185.42 cm) ca1 ED Course: 16:36 Patient arrived in ED. ds1 17:04 Triage completed. ca1 17:05 Arm band placed on right wrist. ca1 Administered Medications: No medications were administered Outcome: 17:56 Patient left the ED. ca1 Signatures: Nora Arreola ds1 Tiffanie Ahn, RN RN ca1
[2020-11-09 19:39] VITALS: BP 140/102; TEMP 97.6; O2SAT 100
== END 2020-11-09 17:56 | disposition left against medical advice (07) ==
LOC: ER 16:31
DX: Z53.21 Procedure and treatment not carried out due to patient leaving prior to being seen by health care provider (principal)
CPT/HCPCS: 99281

== ENCOUNTER 2021-01-07 12:29 | Emergency (ER) | payer SELFPAY ==
[2021-01-07] MEDS ORDERED: HYDROCODONE/APAP 7.5/325 MG TAB ONE (13:12)
--- NOTE | 2021-01-07 14:31 | ER ---
Nurse's Notes [facility] Name: Aron Marrero Age: 35 yrs Sex: Male : 1985 Arrival Date: 01/07/2021 Time: 12:31 Bed 15 Private MD: Luisito Burnette T Diagnosis: Multiple fractures of ribs, left side Presentation: 01/07 12:42 Chief complaint: Slipped on wet stairs 2 nights ago, c/o severe left sided chest wall hb pain 10/10. Denies other injures. Coronavirus screen: At this time, the client does not indicate any symptoms associated with coronavirus-19. Ebola Screen: No symptoms or risks identified at this time. Initial Sepsis Screen: Does the patient meet any 2 criteria? No. Patient's initial sepsis screen is negative. Does the patient have a suspected source of infection? No. Patient's initial sepsis screen is negative. Risk Assessment: Do you want to hurt yourself or someone else? Patient reports no desire to harm self or others. Onset of symptoms was January 05, 2021. 12:42 Method Of Arrival: Ambulatory hb 12:42 Acuity: JUSTINE 4 hb Historical: - Allergies: 12:44 Haldol; hb 12:44 venom-honey bee; hb - PMHx: 12:44 ADD/ADHD; Bipolar disorder; Hypertension; Seizures; hb - PSHx: 12:44 None; hb - Immunization history:: Adult Immunizations up to date. - Social history:: Smoking status: Patient reports the use of cigarette tobacco products, smokes one pack cigarettes per day. Screenin:45 Abuse screen: Denies threats or abuse. Denies injuries from another. Nutritional tr6 screening: No deficits noted. Tuberculosis screening: No symptoms or risk factors identified. Fall Risk Fall in past 12 months (25 points). Assessment: 12:44 General: Appears distressed, uncomfortable, slender, well groomed, Behavior is calm, tr6 cooperative, appropriate for age. Pain: Complains of pain in left upper rib area. Neuro: No deficits noted. Cardiovascular: No deficits noted. Respiratory: Reports shortness of breath pain with movement pain with respiration Airway is patent Trachea midline Respiratory effort is even, unlabored. GI: No deficits noted. : No deficits noted. EENT: No deficits noted. Derm: Bruising that is left upper rib area. Musculoskeletal: No deficits noted. Vital Signs: 12:42 BP 148 / 88; Pulse 99; Resp 16; Temp 97.5; Pulse Ox 100% on R/A; Pain 10/10; hb ED Course: 12:31 Patient arrived in ED. mr 12:31 Luisito Burnette MD is Private Physician. mr 12:40 Mouna Smith FNP-C [facility]. kb 12:40 Catarina Nolan MD is Attending Physician. kb 12:43 Melanie Santacruz, RN is Primary Nurse. tr6 12:44 Triage completed. hb 12:44 Arm band placed on. hb 12:46 Patient has correct armband on for positive identification. Bed in low position. Call tr6 light in reach. Side rails up X 1. clinical research monitor on. Pulse ox on. NIBP on. Door closed. Noise minimized. Lights dimmed. Warm blanket given. 14:05 Ribs Left XRAY In Process Unspecified. EDMS 14:05 Chest Single View XRAY In Process Unspecified. EDMS Administered Medications: 12:56 Drug: [place] (HYDROcodone-acetaminophen) (7.5 mg-325 mg) 1 tabs Route: PO; tr6 Outcome: 14:30 Discharge ordered by . kb 15:09 Patient left the ED. tr6 Signatures: Dispatcher [employer] EDMS Mouna Smith FNP-C FNP-Ckb Hortensia PadillaYsabel, SUJATHA RN Melanie Santacruz, SUJATHA RN tr6
--- NOTE | 2021-01-07 14:31 | EDPHYS ---
Physician Documentation [facility] Name: Aron Marrero Age: 35 yrs Sex: Male : 1985 Arrival Date: 01/07/2021 Time: 12:31 Bed 15 Private MD: Luisito Burnette T ED Physician Catarina Nolan HPI: 01/07 15:19 This 35 yrs old Male presents to ER via Ambulatory with complaints of kb Breathing Difficulty, Fall Injury. 15:19 Details of fall: The patient fell from a height, down approximately 4 stairs. Onset: kb The symptoms/episode began/occurred yesterday. Associated injuries: The patient sustained injury to the chest, specifically the left lateral anterior chest and left lateral posterior chest, abrasion, contusion, ecchymosis, pain with breathing, pain with movement, swelling, tenderness. Severity of symptoms: At their worst the symptoms were moderate, in the emergency department the symptoms are unchanged. The patient has not experienced similar symptoms in the past. The patient has not recently seen a physician. Pt reports he fell down some stairs yesterday and has had pain to left lateral ribs since then. Increased pain with movement and breathing. Historical: - Allergies: 12:44 Haldol; hb 12:44 venom-honey bee; hb - PMHx: 12:44 ADD/ADHD; Bipolar disorder; Hypertension; Seizures; hb - PSHx: 12:44 None; hb - Immunization history:: Adult Immunizations up to date. - Social history:: Smoking status: Patient reports the use of cigarette tobacco products, smokes one pack cigarettes per day. ROS: 15:05 Constitutional: Negative for fever, chills, and weight loss. kb 15:05 Cardiovascular: Positive for chest pain, with cough, with movement, of the left lateral anterior chest and left lateral posterior chest, Negative for edema, orthopnea, palpitations, paroxysmal nocturnal dyspnea. 15:05 All other systems are negative. Exam: 15:17 Constitutional: This is a well developed, well nourished patient who is awake, alert, kb and in no acute distress. Head/Face: Normocephalic, atraumatic. ENT: Moist Mucous membranes Cardiovascular: Regular rate and rhythm with a normal S1 and S2. No gallops, murmurs, or rubs. No pulse deficits. Respiratory: Respirations even and unlabored. No increased work of breathing, no retractions or nasal flaring. Abdomen/GI: Soft, non-tender. No distention MS/ Extremity: Pulses equal, no cyanosis. Neurovascular intact. Full, normal range of motion. Neuro: Awake and alert, GCS 15, oriented to person, place, time, and situation. Moves all extremities. Normal gait. Psych: Awake, alert, with orientation to person, place and time. Behavior, mood, and affect are within normal limits. 15:17 Chest/axilla: Inspection: normal, Palpation: tenderness, that is moderate, of the left lateral anterior chest and left lateral posterior chest, that totally reproduces the patient's complaints. 15:17 Skin: injury, abrasion(s), moderate sized abrasion noted, of the left lateral posterior chest, contusion(s), that are superficial, of the left lateral posterior chest and left lateral anterior chest. Vital Signs: 12:42 BP 148 / 88; Pulse 99; Resp 16; Temp 97.5; Pulse Ox 100% on R/A; Pain 10/10; hb MDM: 12:40 Patient medically screened. kb 15:17 Data reviewed: vital signs, nurses notes. Data interpreted: Pulse oximetry: on room air kb is 100 %. Interpretation: normal. Counseling: I had a detailed discussion with the patient and/or guardian regarding: the historical points, exam findings, and any diagnostic results supporting the discharge/admit diagnosis, radiology results, the need for outpatient follow up, a family practitioner, to return to the emergency department if symptoms worsen or persist or if there are any questions or concerns that arise at home. 01/07 12:46 Order name: Ribs Left XRAY; Complete Time: 14:50 kb 01/07 12:46 Order name: Chest Single View XRAY; Complete Time: 14:50 kb 01/07 14:21 Order name: INCENTIVE SPIROMETRY kb Administered Medications: 12:56 Drug: [place] (HYDROcodone-acetaminophen) (7.5 mg-325 mg) 1 tabs Route: PO; tr6 Disposition: 01/07/21 14:30 Discharged to Home. Impression: Multiple fractures of ribs, left side. - Condition is Stable. - Discharge Instructions: Rib Fracture, [id number]. - Prescriptions for Ibuprofen 800 mg Oral Tablet - take 1 tablet by ORAL route every 8 hours As needed take with food; 30 tablet. Tylenol- Codeine #3 300-30 mg Oral Tablet - take 2 tablets by ORAL route every 6 hours As needed; 20 tablet. - Work release form, Medication Reconciliation Form, Thank You Letter, Antibiotic Education, Prescription Opioid Use form. - Follow up: Emergency Department; When: As needed; Reason: Worsening of condition. Follow up: Private Physician; When: 2 - 3 days; Reason: Recheck today's complaints, Continuance of care, Re-evaluation by your physician. Addendum: 01/11/2021 06:57 Co-signature as Attending Physician, Catarina Nolan MD. m a2 Signatures: Dispatcher [employer] EDMouna Camacho, HEMAL-C HEMAL-Ysabel Neil, RN RN Catarina Nolan MD MD ma2 Melanie Santacruz RN RN tr6 Corrections: (The following items were deleted from the chart) 01/07 15:09 14:30 01/07/2021 14:30 Discharged to Home. Impression: Multiple fractures of ribs, left tr6 side. Condition is Stable. Forms are Medication Reconciliation Form, Thank You Letter, Antibiotic Education, Prescription Opioid Use. Follow up: Emergency Department; When: As needed; Reason: Worsening of condition. Follow up: Private Physician; When: 2 - 3 days; Reason: Recheck today's complaints, Continuance of care, Re-evaluation by your physician. kb 15:19 15:17 Skin: injury, contusion(s), that are superficial, of the left lateral posterior kb chest and left lateral anterior chest, kb
--- NOTE | 2021-01-07 14:36 | RAD REPORT ---
EXAM DESCRIPTION: RAD - Ribs Left - 01/07/2021 2:05 pm CLINICAL HISTORY: Chest pain FINDINGS: Nondisplaced and minimally displaced fractures involve the fourth, fifth, seventh and nint h ribs. No pneumothorax. No significant pleural effusion Lungs appear clear of acute infiltrate. Heart is normal size
--- NOTE | 2021-01-07 14:37 | RAD REPORT ---
EXAM DESCRIPTION: Nani Single View01/07/2021 2:05 pm CLINICAL HISTORY: Chest pain FINDINGS: Nondisplaced and minimally displaced fractures involve the fourth, fifth, seventh and nint h left ribs. No pneumothorax. No significant pleural effusion Lungs appear clear of acute infiltrate. Heart is normal size
[2021-01-07 15:15] VITALS: BP 148/88; TEMP 97.5; O2SAT 100
== END 2021-01-07 15:09 | disposition home or self-care (01) ==
LOC: ER 12:29
DX: S22.42XA Multiple fractures of ribs, left side, initial encounter for closed fracture (principal); W10.9XXA Fall (on) (from) unspecified stairs and steps, initial encounter; I10 Essential (primary) hypertension; F17.210 Nicotine dependence, cigarettes, uncomplicated; Z88.5 Allergy status to narcotic agent; Z91.030 Bee allergy status
CPT/HCPCS: 71045; 99284

== ENCOUNTER 2021-01-17 16:53 | Emergency (ER) | payer SELFPAY ==
[2021-01-17] MEDS ORDERED: HYDROCODONE/APAP 7.5/325 MG TAB ONE (17:57)
--- NOTE | 2021-01-17 18:30 | RAD REPORT ---
EXAM DESCRIPTION: RAD - Thoracic Spine Ap/Lat - 01/17/2021 6:13 pm CLINICAL HISTORY: Back pain FINDINGS: No fracture or dislocation. Mild scoliosis involves the spine
--- NOTE | 2021-01-17 18:36 | ER ---
Nurse's Notes [facility] Name: Aron Marrero Age: 35 yrs Sex: Male : 1985 Arrival Date: 01/17/2021 Time: 16:57 Bed External Waiting Private MD: Diagnosis: Pain in thoracic spine Presentation: 01/17 17:32 Chief complaint: Patient states: Upper back pain since Friday, fell on Friday and ph broke 4 ribs, back pain started after returning to work. Coronavirus screen: Client denies travel out of the [place] in the last 14 days. Ebola Screen: No symptoms or risks identified at this time. 17:32 Method Of Arrival: Ambulatory ph 17:38 Initial Sepsis Screen: Does the patient meet any 2 criteria? No. Patient's initial ph sepsis screen is negative. Does the patient have a suspected source of infection? No. Patient's initial sepsis screen is negative. Risk Assessment: Do you want to hurt yourself or someone else? Patient reports no desire to harm self or others. Onset of symptoms was January 17, 2021. 17:38 Acuity: JUSTINE 4 ph Historical: - Allergies: 17:35 Haldol; ph 17:35 venom-honey bee; ph - PMHx: 17:35 ADD/ADHD; Bipolar disorder; Hypertension; Seizures; ph - PSHx: 17:35 None; ph - Immunization history:: Adult Immunizations unknown. - Social history:: Smoking status: Patient reports the use of cigarette tobacco products, smokes one pack cigarettes per day. Vital Signs: 17:38 BP 158 / 111; Pulse 108; Resp 18; Temp 98.0; Pulse Ox 99% on R/A; ph ED Course: 16:57 Patient arrived in ED. ds1 17:35 [facility]oun[facility] Smith [facility]-C [facility]. kb 17:35 Michael Perez MD is Attending Physician. kb 17:38 Triage completed. ph 17:38 Arm band placed on Patient placed in waiting room, Patient notified of wait time. X-ray ph ordered. 18:07 Thoracic Spine Ap/Lat In Process Unspecified. EDMS Administered Medications: 17:38 Drug: [place] (HYDROcodone-acetaminophen) (7.5 mg-325 mg) 1 tabs Route: PO; ph Outcome: 18:35 Discharge ordered by . kb 20:08 Patient left the ED. iw Signatures: Dispatcher [employer] EDMouna Camacho, SHARAN RECIO-Nora Coelho ds1 Laurence Kruger, RN RN iw Jaye Borges RN RN ph
--- NOTE | 2021-01-17 18:36 | EDPHYS ---
Physician Documentation [facility] Name: Aron Marrero Age: 35 yrs Sex: Male : 1985 Arrival Date: 01/17/2021 Time: 16:57 Bed External Waiting Private MD: ED Physician Michael Perez HPI: 01/17 18:33 This 35 yrs old Male presents to ER via Ambulatory with complaints of Upper kb Back Pain. 18:33 The patient presents with pain that is acute. The symptoms are located in the thoracic kb area. Onset: The symptoms/episode began/occurred yesterday. The pain does not radiate. Associated signs and symptoms: The patient has no apparent associated signs or symptoms. The problem was sustained during a fall. Modifying factors: The patient symptoms are alleviated by nothing, the patient symptoms are aggravated by any movement. Severity of symptoms: At their worst the symptoms were moderate, in the emergency department the symptoms are unchanged. The patient has not experienced similar symptoms in the past. The patient has been recently seen at the [facility] Emergency Department, a couple of weeks ago. Pt reports he was here for fall on 01/07/21 and diagnosed with some broken ribs. Went back to work yesterday and started having pain with point tenderness to thoracic spine, between shoulder blades. Historical: - Allergies: 17:35 Haldol; ph 17:35 venom-honey bee; ph - PMHx: 17:35 ADD/ADHD; Bipolar disorder; Hypertension; Seizures; ph - PSHx: 17:35 None; ph - Immunization history:: Adult Immunizations unknown. - Social history:: Smoking status: Patient reports the use of cigarette tobacco products, smokes one pack cigarettes per day. ROS: 18:32 Constitutional: Negative for fever, chills, and weight loss. kb 18:32 Back: Positive for pain at rest, pain with movement, of the thoracic area. 18:32 All other systems are negative. kb Exam: 18:32 Constitutional: This is a well developed, well nourished patient who is awake, alert, kb and in no acute distress. Head/Face: Normocephalic, atraumatic. ENT: Moist Mucous membranes Respiratory: Respirations even and unlabored. No increased work of breathing, no retractions or nasal flaring. Skin: Warm, dry with normal turgor. Normal color. MS/ Extremity: Pulses equal, no cyanosis. Neurovascular intact. Full, normal range of motion. Neuro: Awake and alert, GCS 15, oriented to person, place, time, and situation. Moves all extremities. Normal gait. Psych: Awake, alert, with orientation to person, place and time. Behavior, mood, and affect are within normal limits. 18:32 Back: pain, that is moderate, of the thoracic area, ROM is painful, with all movement. Vital Signs: 17:38 BP 158 / 111; Pulse 108; Resp 18; Temp 98.0; Pulse Ox 99% on R/A; ph MDM: 17:36 Patient medically screened. kb 18:31 Data reviewed: vital signs, nurses notes. Data interpreted: Pulse oximetry: on room air kb is 99 %. Interpretation: normal. Counseling: I had a detailed discussion with the patient and/or guardian regarding: the historical points, exam findings, and any diagnostic results supporting the discharge/admit diagnosis, radiology results, the need for outpatient follow up, a family practitioner, to return to the emergency department if symptoms worsen or persist or if there are any questions or concerns that arise at home. 06/ 18:04 Order name: Thoracic Spine Ap/Lat; Complete Time: 18:31 EDMS Administered Medications: 17:38 Drug: [place] (HYDROcodone-acetaminophen) (7.5 mg-325 mg) 1 tabs Route: PO; ph Disposition: 01/17/21 18:35 Discharged to Home. Impression: Pain in thoracic spine. - Condition is Stable. - Discharge Instructions: Back Pain, Adult, [id number]. - Work release form, Medication Reconciliation Form, Thank You Letter, Antibiotic Education, Prescription Opioid Use form. - Follow up: Emergency Department; When: As needed; Reason: Worsening of condition. Follow up: Private Physician; When: 2 - 3 days; Reason: Recheck today's complaints, Continuance of care, Re-evaluation by your physician. Signatures: Dispatcher [employer] EDFL Mouna Smith, TITLE ABSTRACTOR-C TITLE ABSTRACTOR-Laurence Grossman RN RN iw Jaye Borges RN RN ph Corrections: (The following items were deleted from the chart) 18:04 17:42 Thoracic Spine Single View ordered. [facility] 20:08 18:35 01/17/2021 18:35 Discharged to Home. Impression: Pain in thoracic spine. iw Condition is Stable. Forms are Medication Reconciliation Form, Thank You Letter, Antibiotic Education, Prescription Opioid Use. Follow up: Emergency Department; When: As needed; Reason: Worsening of condition. Follow up: Private Physician; When: 2 - 3 days; Reason: Recheck today's complaints, Continuance of care, Re-evaluation by your physician. kb
[2021-01-17 20:14] VITALS: BP 158/111; TEMP 98; O2SAT 99
== END 2021-01-17 20:08 | disposition home or self-care (01) ==
LOC: ER 16:53
DX: M54.6 Pain in thoracic spine (principal); I10 Essential (primary) hypertension; F17.210 Nicotine dependence, cigarettes, uncomplicated; Z88.5 Allergy status to narcotic agent; Z91.030 Bee allergy status
CPT/HCPCS: 72070; 99283

== ENCOUNTER 2021-10-12 12:39 | Emergency (ER) | payer SELFPAY ==
[2021-10-12] MEDS ORDERED: LORazepam 2 MG/ML VIAL ONE (12:58)
[2021-10-12] MEDS ORDERED: Ringers Lactate 1,000 ML IV ONE (12:58)
[2021-10-12 13:14] LABS: Urine Blood Negative (Negative); Urine Glucose Negative (Negative); Urine Protein Negative (Negative)
[2021-10-12 13:17] LABS: Hematocrit 40.4 % (39.6-49.0); Lymphocytes % 31.3 % (15.3-44.8); MPV 7.1 fL (7.6-11.3)
[2021-10-12 13:23] LABS: Protime INR 0.97
[2021-10-12 13:28] LABS: Barbiturates NEGATIVE (NEGATIVE); Benzodiazepines NEGATIVE (NEGATIVE); Cocaine NEGATIVE (NEGATIVE); METHAMPHETAM POSITIVE (NEGATIVE); Methadone NEGATIVE (NEGATIVE); Opiates NEGATIVE (NEGATIVE); Phencyclidine NEGATIVE (NEGATIVE); THC Cannibis NEGATIVE (NEGATIVE)
[2021-10-12 13:49] LABS: ALT/SGPT 32 U/L (12-78); AST/SGOT 32 U/L (15-37); Albumin 3.7 g/dL (3.4-5.0); Alkaline Phosphatase 98 U/L (45-117); BUN Blood Urea Nitrogen 8 mg/dL (7-18); Bicarbonate 28 mmol/L (21-32); Bilirubin Direct 0.1 mg/dL (0-0.2); Bilirubin Total 0.6 mg/dL (0.2-1.0); Glucose Level 140 mg/dL (74-106); Potassium 3.8 mmol/L (3.5-5.1); Protein, Total 7.9 g/dL (6.4-8.2); Sodium Level 134 mmol/L (136-145)
--- NOTE | 2021-10-12 15:35 | EDPHYS ---
Physician Documentation [facility] Name: Aron Marrero Age: 36 yrs Sex: Male : 1985 Arrival Date: 10/12/2021 Time: 12:40 Bed 26 Private MD: ED Physician Catarina Nolan HPI: 10/12 14:26 This 36 yrs old Male presents to ER via EMS with complaints of Anxiety, jr8 Palpitations . 14:26 The patient presents to the emergency department after a known overdose, a result of jr8 recreational substance abuse. Context: Method: the patient has a confirmed or suspected inhalation, marajuana and amphetamines . Associated signs and symptoms: Pertinent positives: anxiety, palpitations. Severity of symptoms: At their worst the symptoms were moderate in the emergency department the symptoms are unchanged. The patient has not experienced similar symptoms in the past. The patient has not recently seen a physician. Patient stated that he ingested amphetamines a few days ago. Today smoked marajuana and then about 1 hour after that started to feel very anxious and have palpitations . Historical: - Allergies: 12:42 Haldol; ab2 12:42 venom-honey bee; ab2 - PMHx: 12:42 ADD/ADHD; Bipolar disorder; Hypertension; Seizures; ab2 - Immunization history:: Adult Immunizations up to date, Client reports having NOT received the Covid vaccine. - Social history:: Smoking status: Patient reports the use of cigarette tobacco products, smokes two packs cigarettes per day. Patient uses alcohol, on a daily basis. claims drinking about a 6 pack/day. street drugs, marijuana, Methamphetamine (Meth). ROS: 14:26 Eyes: Negative for injury, pain, redness, and discharge, ENT: Negative for injury, jr8 pain, and discharge, Neck: Negative for injury, pain, and swelling, Respiratory: Negative for shortness of breath, cough, wheezing, and pleuritic chest pain, Abdomen/GI: Negative for abdominal pain, nausea, vomiting, diarrhea, and constipation, Back: Negative for injury and pain, MS/Extremity: Negative for injury and deformity, Skin: Negative for injury, rash, and discoloration, Neuro: Negative for headache, weakness, numbness, tingling, and seizure. 14:26 Cardiovascular: Positive for palpitations, Negative for chest pain. 14:26 Psych: Positive for anxiety. Exam: 14:26 Eyes: Pupils equal round and reactive to light, extra-ocular motions intact. Lids and jr8 lashes normal. Conjunctiva and sclera are non-icteric and not injected. Cornea within normal limits. Periorbital areas with no swelling, redness, or edema. ENT: Nares patent. No nasal discharge, no septal abnormalities noted. Tympanic membranes are normal and external auditory canals are clear. Oropharynx with no redness, swelling, or masses, exudates, or evidence of obstruction, uvula midline. Mucous membranes moist. Neck: Trachea midline, no thyromegaly or masses palpated, and no cervical lymphadenopathy. Supple, full range of motion without nuchal rigidity, or vertebral point tenderness. No Meningismus. Cardiovascular: Regular rate and rhythm with a normal S1 and S2. No gallops, murmurs, or rubs. Normal PMI, no JVD. No pulse deficits. Respiratory: Lungs have equal breath sounds bilaterally, clear to auscultation and percussion. No rales, rhonchi or wheezes noted. No increased work of breathing, no retractions or nasal flaring. Abdomen/GI: Soft, non-tender, with normal bowel sounds. No distension or tympany. No guarding or rebound. No evidence of tenderness throughout. Back: No spinal tenderness. No costovertebral tenderness. Full range of motion. Skin: Warm, dry with normal turgor. Normal color with no rashes, no lesions, and no evidence of cellulitis. MS/ Extremity: Pulses equal, no cyanosis. Neurovascular intact. Full, normal range of motion. Neuro: Awake and alert, GCS 15, oriented to person, place, time, and situation. Cranial nerves II-XII grossly intact. Motor strength 5/5 in all extremities. Sensory grossly intact. Cerebellar exam normal. Normal gait. 14:26 Constitutional: The patient appears alert, awake, anxious. 14:26 Psych: Behavior/mood is anxious, Affect is animated, Oriented to person, place, time, Patient has no thoughts/intents to harm self or others. Judgement / Insight is normal. Memory is normal. Delusions/hallucinations are not present. Vital Signs: 12:41 BP 178 / 122; Pulse 107; Resp 20; Temp 98.4(O); Pulse Ox 100% on R/A; Weight 69.85 kg; ab2 Height 6 ft. 1 in. (185.42 cm); Pain 0/10; 13:11 BP 147 / 108; Pulse 80; Resp 16; Pulse Ox 100% on R/A; ab2 14:06 BP 132 / 102; Pulse 79; Resp 20; Pulse Ox 100% ; lr4 15:45 BP 148 / 101; Pulse 85; Resp 18; Pulse Ox 98% ; lr4 12:41 Body Mass Index 20.32 (69.85 kg, 185.42 cm) ab2 MDM: 12:42 Patient medically screened. 8 15:34 Data reviewed: vital signs, nurses notes, lab test result(s), EKG. Data interpreted: [facility] Pulse oximetry: on room air is 100 %. Interpretation: normal. Counseling: I had a detailed discussion with the patient and/or guardian regarding: the historical points, exam findings, and any diagnostic results supporting the discharge/admit diagnosis, lab results, the need for outpatient follow up, a family practitioner, to return to the emergency department if symptoms worsen or persist or if there are any questions or concerns that arise at home. Response to treatment: the patient's symptoms have resolved after treatment, patient is well hydrated. ED course: counseled patient on drug abuse . 10/12 12:46 Order name: Acetaminophen [facility] 10/12 12:46 Order name: Basic Metabolic Panel [facility] 10/12 12:46 Order name: CBC with Diff; Complete Time: 13:[address] [facility] 10/12 12:46 Order name: ETOH Level; Complete Time: 13:[address] [facility] 10/12 12:46 Order name: Hepatic Function; Complete Time: 13:[address] [facility] 10/12 12:46 Order name: PT-INR; Complete Time: 13:[address] [facility] 10/12 12:46 Order name: Ptt, Activated; Complete Time: 13:[address] [facility] 10/12 12:46 Order name: Salicylate; Complete Time: 13:[address] [facility] 10/12 12:46 Order name: Urine Drug Screen; Complete Time: 13:[address] [facility] 10/12 12:47 Order name: Acetaminophen Level; Complete Time: 13:58 [facility] 10/12 12:47 Order name: Basic Metabolic Panel; Complete Time: 13:58 [facility] 10/12 13:14 Order name: Urine Dipstick-Ancillary; Complete Time: 13:34 EDMS 10/12 12:46 Order name: EKG; Complete Time: 12:47 jr8 10/12 12:46 Order name: EKG - Nurse/Tech; Complete Time: 12:52 jr8 10/12 12:46 Order name: IV Saline Lock; Complete Time: 12:52 jr8 10/12 12:46 Order name: Labs collected and sent; Complete Time: 13:11 jr8 10/12 12:46 Order name: Suicide Screening (Coffee); Complete Time: 13:11 jr8 10/12 12:46 Order name: Urine Dipstick-Ancillary (obtain specimen); Complete Time: 13:11 jr8 Administered Medications: 12:59 Drug: Ringers - Lactated Ringers Solution 1000 ml Route: IV; Rate: bolus; Site: left ab2 antecubital; 13:58 Follow up: IV Status: Completed infusion lr4 12:59 Drug: Ativan (LORazepam) 1 mg Route: IVP; Site: left antecubital; ab2 14:25 Follow up: Response: No adverse reaction; Anxiety decreased lr4 Disposition Summary: 10/12/21 15:35 Discharge Ordered Location: Home jr8 Problem: new jr8 Symptoms: have improved jr8 Condition: Stable jr8 Diagnosis - Adverse effect of amphetamines jr8 - Adverse effect of other psychotropic drugs jr8 Followup: jr8 - With: Private Physician - When: 2 - 3 days - Reason: Recheck today's complaints, Continuance of care, Re-evaluation by your physician Discharge Instructions: - Discharge Summary Sheet jr8 - Accidental Drug Poisoning, Adult jr8 - Illegal Drug Use Information, Adult jr8 Forms: - Medication Reconciliation Form jr8 - Thank You Letter jr8 - Antibiotic Education jr8 - Prescription Opioid Use jr8 Signatures: Dispatcher [employer] EDMS Juan Carlos Camejo PA PA jr8 Billy Garrison ab2 Lisa Gómez RN lr4
--- NOTE | 2021-10-12 15:35 | ER ---
Nurse's Notes [facility] Name: Aron Marrero Age: 36 yrs Sex: Male : 1985 Arrival Date: 10/12/2021 Time: 12:40 Bed 26 Private MD: Diagnosis: Adverse effect of amphetamines;Adverse effect of other psychotropic drugs Presentation: 10/12 12:41 Chief complaint: Patient states: "I smoked a joint and I think its was laced with ab2 fentanyl. I started shaking and my chest was fluttering." Pt denies SOB. Coronavirus screen: Vaccine status: Patient reports being unvaccinated. Client denies travel out of the [place] in the last 14 days. At this time, the client does not indicate any symptoms associated with coronavirus-19. Ebola Screen: Patient negative for fever greater than or equal to 101.5 degrees Fahrenheit, and additional compatible Ebola Virus Disease symptoms Patient denies exposure to infectious person. Patient denies travel to an Ebola-affected area in the 21 days before illness onset. No symptoms or risks identified at this time. Initial Sepsis Screen: Does the patient meet any 2 criteria? HR > 90 bpm. Does the patient have a suspected source of infection? No. Patient's initial sepsis screen is negative. Risk Assessment: Do you want to hurt yourself or someone else? Patient reports no desire to harm self or others. Onset of symptoms is unknown. 12:41 Method Of Arrival: EMS: [facility] ab2 12:41 Acuity: JUSTINE 3 ab2 Historical: - Allergies: 12:42 Haldol; ab2 12:42 venom-honey bee; ab2 - PMHx: 12:42 ADD/ADHD; Bipolar disorder; Hypertension; Seizures; ab2 - Immunization history:: Adult Immunizations up to date, Client reports having NOT received the Covid vaccine. - Social history:: Smoking status: Patient reports the use of cigarette tobacco products, smokes two packs cigarettes per day. Patient uses alcohol, on a daily basis. claims drinking about a 6 pack/day. street drugs, marijuana, Methamphetamine (Meth). Screenin:44 Abuse screen: Denies threats or abuse. Denies injuries from another. Nutritional ab2 screening: No deficits noted. Tuberculosis screening: No symptoms or risk factors identified. Fall Risk None identified. Assessment: 12:43 General: Appears in no apparent distress. comfortable, Behavior is anxious. Pain: ab2 Denies pain. Neuro: Level of Consciousness is awake, alert, obeys commands, Oriented to person, place, time, situation, Appropriate for age Take Down Inspector are equal bilaterally Moves all extremities. Gait is steady, Speech is normal, Facial symmetry appears normal. Cardiovascular: Reports palpitations, Denies shortness of breath, Heart tones S1 S2 present. Respiratory: No deficits noted. Airway is patent Respiratory effort is even, unlabored, Respiratory pattern is regular, symmetrical. GI: No deficits noted. No signs and/or symptoms were reported involving the gastrointestinal system. Abdomen is round non-distended. : No deficits noted. No signs and/or symptoms were reported regarding the genitourinary system. EENT: No deficits noted. No signs and/or symptoms were reported regarding the EENT system. Derm: No deficits noted. No signs and/or symptoms reported regarding the dermatologic system. Skin is intact, is healthy with good turgor, Skin is dry, Skin is pink, warm \\T\\ dry. 15:46 Reassessment: Patient states feeling better. Patient states symptoms have improved. Pt lr4 departed ed ambulatory with all personal effects, vss, resp even an unlabored. General: Appears. Vital Signs: 12:41 BP 178 / 122; Pulse 107; Resp 20; Temp 98.4(O); Pulse Ox 100% on R/A; Weight 69.85 kg; ab2 Height 6 ft. 1 in. (185.42 cm); Pain 0/10; 13:11 BP 147 / 108; Pulse 80; Resp 16; Pulse Ox 100% on R/A; ab2 14:06 BP 132 / 102; Pulse 79; Resp 20; Pulse Ox 100% ; lr4 15:45 BP 148 / 101; Pulse 85; Resp 18; Pulse Ox 98% ; lr4 12:41 Body Mass Index 20.32 (69.85 kg, 185.42 cm) ab2 ED Course: 12:40 Patient arrived in ED. ab2 12:41 Billy Garrison is Primary Nurse. ab2 12:42 Juan Carlos Camejo PA is PHCP. jr8 12:42 Catarina Nolan MD is Attending Physician. jr8 12:42 Triage completed. ab2 12:45 Arm band placed on right wrist. ab2 12:45 Patient has correct armband on for positive identification. Bed in low position. Call ab2 light in reach. Side rails up X2. 12:45 No provider procedures requiring assistance completed. ab2 12:49 EKG done, by ED staff. lr4 12:49 Initial lab(s) drawn, by me. lr4 12:53 Maintain EMS IV. Gauge \\T\\ site: 18 LAC. ab2 13:11 Urine Drug Screen Sent. ab2 13:11 Salicylate Sent. ab2 13:11 Ptt, Activated Sent. ab2 13:11 PT-INR Sent. ab2 13:11 Hepatic Function Sent. ab2 13:11 ETOH Level Sent. ab2 13:11 CBC with Diff Sent. ab2 13:11 Basic Metabolic Panel Sent. ab2 13:11 Acetaminophen Sent. ab2 13:11 Acetaminophen Level Sent. ab2 13:11 Basic Metabolic Panel Sent. ab2 Administered Medications: 12:59 Drug: Ringers - Lactated Ringers Solution 1000 ml Route: IV; Rate: bolus; Site: left ab2 antecubital; 13:58 Follow up: IV Status: Completed infusion lr4 12:59 Drug: Ativan (LORazepam) 1 mg Route: IVP; Site: left antecubital; ab2 14:25 Follow up: Response: No adverse reaction; Anxiety decreased lr4 Outcome: 15:35 Discharge ordered by . brain 15:46 Patient left the ED. mb7 Signatures: Juan Carlos Camejo PA PA jr8 Breneman, Mary mb7 Billy Garrison ab2 Lisa Gómez, RN RN lr4
[2021-10-12 16:50] VITALS: TEMP 98.4
[2021-10-12 16:54] VITALS: BP 148/101; O2SAT 98
== END 2021-10-12 15:46 | disposition home or self-care (01) ==
LOC: ER 12:39
DX: R00.2 Palpitations (principal); T43.625A Adverse effect of amphetamines, initial encounter; T43.8X5A Adverse effect of other psychotropic drugs, initial encounter; F17.210 Nicotine dependence, cigarettes, uncomplicated; I10 Essential (primary) hypertension; Z88.5 Allergy status to narcotic agent; Z91.030 Bee allergy status
CPT/HCPCS: 36415; 80048; 80076; 80307; 80320; 80329; 81003; 85025; 85610; 85730; 93005; 96365; 96375; 99284; J7120

== ENCOUNTER 2021-10-15 22:12 | Emergency (ER) | payer SELFPAY ==
[2021-10-15] MEDS ORDERED: NA CHLORIDE 0.9% 1,000 ML ONE (23:10)
[2021-10-15] MEDS ORDERED: KETOROLAC 30 MG/ML INJ ONE (23:10)
[2021-10-15 23:38] LABS: Absolute Lymphocytes (CBC) 3.4 K/uL (0.7-4.9); Hematocrit 40.2 % (39.6-49.0); Lymphocytes % 38.8 % (15.3-44.8); MPV 6.9 fL (7.6-11.3); RBC Red Blood Cell Count 4.24 M/uL (4.33-5.43)
[2021-10-15] MEDS ORDERED: hydrOXYzine HCL 25 MG TAB ONE (23:49)
[2021-10-16 00:02] LABS: ALT/SGPT 38 U/L (12-78); AST/SGOT 27 U/L (15-37); Albumin 3.7 g/dL (3.4-5.0); Alkaline Phosphatase 108 U/L (45-117); BUN Blood Urea Nitrogen 16 mg/dL (7-18); Bicarbonate 30 mmol/L (21-32); Bilirubin Direct < 0.1 mg/dL (0-0.2); Bilirubin Total 0.5 mg/dL (0.2-1.0); Glucose Level 100 mg/dL (74-106); Magnesium 2.4 mg/dL (1.8-2.4); Potassium 4.1 mmol/L (3.5-5.1); Protein, Total 7.7 g/dL (6.4-8.2); Sodium Level 134 mmol/L (136-145)
--- NOTE | 2021-10-16 00:10 | ER ---
Nurse's Notes [facility] Name: Aron Marrero Age: 36 yrs Sex: Male : 1985 Arrival Date: 10/15/2021 Time: 22:13 Bed 19 Private MD: Diagnosis: Chest pain, unspecified Presentation: 10/15 23:00 Chief complaint: Patient states: I took Meth 3 days ago and today my chest is hurting vc1 really bad. Coronavirus screen: Vaccine status: Patient reports being unvaccinated. At this time, the client does not indicate any symptoms associated with coronavirus-19. Ebola Screen: No symptoms or risks identified at this time. Initial Sepsis Screen: Does the patient meet any 2 criteria? Yes Does the patient have a suspected source of infection? No. Patient's initial sepsis screen is negative. Risk Assessment: Do you want to hurt yourself or someone else? Patient reports no desire to harm self or others. Onset of symptoms was October 12, 2021. 23:00 Method Of Arrival: Ambulatory vc1 23:00 Acuity: JUSTINE 3 vc1 Triage Assessment: 23:30 General: Appears in no apparent distress. uncomfortable, Behavior is cooperative, vc1 anxious. Pain: Complains of pain in mid-sternal area Pain does not radiate. Pain currently is 9 out of 10 on a pain scale. Cardiovascular: Reports chest pain, Denies shortness of breath. Respiratory: Airway is patent Respiratory effort is even, unlabored, Respiratory pattern is regular, symmetrical. Historical: - Allergies: 23:40 Haldol; vc1 23:40 venom-honey bee; vc1 - PMHx: 23:40 ADD/ADHD; Bipolar disorder; Hypertension; Seizures; vc1 - Immunization history:: Adult Immunizations up to date. - Social history:: Smoking status: Patient denies any tobacco usage or history of. Screenin:00 Abuse screen: Denies threats or abuse. Nutritional screening: No deficits noted. vc1 Tuberculosis screening: No symptoms or risk factors identified. Fall Risk None identified. Assessment: 23:30 Pain: Pain began suddenly. vc1 Vital Signs: 23:30 BP 108 / 73; Pulse 69; Resp 18; Pulse Ox 100% on R/A; Weight 68.04 kg; Height 6 ft. 1 vc1 in. (185.42 cm); 10/16 00:16 BP 104 / 70; Pulse 76; Resp 15 S; Pulse Ox 99% on R/A; vc1 10/15 23:30 Body Mass Index 19.79 (68.04 kg, 185.42 cm) vc1 ED Course: 10/15 22:13 Patient arrived in ED. ja2 22:36 Mic Saenz NP is PHCP. pm1 22:36 Mat Alegria MD is Attending Physician. pm1 22:59 Sharon Viveros RN is Primary Nurse. vc1 23:00 Patient has correct armband on for positive identification. Bed in low position. Call vc1 light in reach. cafeteria monitor on. Pulse ox on. NIBP on. 23:00 Arm band placed on right wrist. vc1 23:03 EKG done, by ED staff. lr4 23:09 XRAY Chest (1 view) Sent. lr4 23:16 XRAY Chest (1 view) In Process Unspecified. EDMS 23:28 CBC with Diff Sent. vc1 23:28 Basic Metabolic Panel Sent. vc1 23:28 Inserted saline lock: 22 gauge in left antecubital area, using aseptic technique. Blood vc1 collected. 23:28 Patient maintains SpO2 saturation greater than 95% on room air. vc1 23:40 Triage completed. vc1 03 00:16 Basic Metabolic Panel Sent. vc1 00:34 No provider procedures requiring assistance completed. IV discontinued, intact, vc1 bleeding controlled, No redness/swelling at site. Pressure dressing applied. Administered Medications: 10/15 23:28 Drug: NS 0.9% 1000 ml Route: IV; Rate: 1000 ml; Site: left antecubital; vc1 10/16 00:15 Follow up: Response: No adverse reaction; IV Status: Completed infusion; IV Intake: vc1 1000ml 10/15 23:28 Drug: Ketorolac 30 mg Route: IVP; Site: left antecubital; vc1 03 00:15 Follow up: Response: No adverse reaction; No change in condition; RASS: Restless (+1) vc1 10/15 23:48 Drug: hydrOXYzine 25 mg Route: PO; vc1 10/16 00:15 Follow up: Response: No adverse reaction; No change in condition vc1 Intake: 00:15 IV: 1000ml; Total: 1000ml. vc1 Outcome: 00:09 Discharge ordered by . pm1 00:34 Discharged to home ambulatory. vc1 00:34 Condition: good 00:34 Discharge instructions given to patient, Instructed on discharge instructions, follow up and referral plans. Demonstrated understanding of instructions, follow-up care. 00:36 Patient left the ED. vc1 Signatures: Dispatcher [employer] EDMS Mic Saenz NP ZIPPER CUTTER pm1 Enid Haley 2 Sharon Viveros RN RN vc1 Lisa Gómez RN RN lr4
--- NOTE | 2021-10-16 00:10 | EDPHYS ---
Physician Documentation [facility] Name: Aron Marrero Age: 36 yrs Sex: Male : 1985 Arrival Date: 10/15/2021 Time: 22:13 Bed 19 Private MD: ED Physician Mat Alegria HPI: 10/15 23:03 This 36 yrs old Male presents to ER via Unassigned with complaints of Chest pm1 Pain. 23:03 The patient or guardian reports chest pain that is located primarily in the mid-sternal pm1 area. The pain does not radiate. Associated signs and symptoms: The patient has no apparent associated signs or symptoms, Pertinent negatives: cough, diaphoresis, dizziness, headache, nausea, shortness of breath, vomiting. The chest pain is described as sharp. Duration: The patient or guardian reports a single episode, that is still ongoing, and unchanged, onset 3 days ago since using meth. Since in the ER 3 days ago for chest pain post meth abuse. Patient reports pain has continued since then. Denies any use of drugs since last ER visit. Modifying factors: The symptoms are alleviated by nothing. the symptoms are aggravated by nothing. Severity of pain: in the emergency department the pain is unchanged. The patient has been recently seen at the [facility], last week, for similar complaints labs were performed, X-rays were performed. Historical: - Allergies: 23:40 Haldol; vc1 23:40 venom-honey bee; vc1 - PMHx: 23:40 ADD/ADHD; Bipolar disorder; Hypertension; Seizures; vc1 - Immunization history:: Adult Immunizations up to date. - Social history:: Smoking status: Patient denies any tobacco usage or history of. ROS: 23:03 Constitutional: Negative for fever, chills, and weight loss. pm1 23:03 Respiratory: Negative for shortness of breath, cough, wheezing, and pleuritic chest pain, Abdomen/GI: Negative for abdominal pain, nausea, vomiting, diarrhea, and constipation, Back: Negative for injury and pain, MS/Extremity: Negative for injury and deformity, Skin: Negative for injury, rash, and discoloration, Neuro: Negative for headache, weakness, numbness, tingling, and seizure. 23:03 Cardiovascular: Positive for chest pain, Negative for edema, palpitations. 23:03 All other systems are negative. Exam: 23:03 Constitutional: This is a well developed, well nourished patient who is awake, alert, pm1 and in no acute distress. Head/Face: Normocephalic, atraumatic. 23:03 Back: No spinal tenderness. No costovertebral tenderness. Full range of motion. Skin: Warm, dry with normal turgor. Normal color with no rashes, no lesions, and no evidence of cellulitis. MS/ Extremity: Pulses equal, no cyanosis. Neurovascular intact. Full, normal range of motion. 23:03 Chest/axilla: Palpation: tenderness, that is mild, of the mid-sternal area, that totally reproduces the patient's complaints. 23:03 Cardiovascular: Exam negative for acute changes, Rate: normal, Rhythm: regular, Pulses: no pulse deficits are appreciated, Heart sounds: normal. 23:03 Respiratory: Exam negative for acute changes, respiratory distress, shortness of breath, Breath sounds: are clear throughout. 23:03 Neuro: Exam negative for acute changes, Orientation: is normal, Mentation: is normal, Motor: is normal, moves all fours. Vital Signs: 23:30 BP 108 / 73; Pulse 69; Resp 18; Pulse Ox 100% on R/A; Weight 68.04 kg; Height 6 ft. 1 vc1 in. (185.42 cm); 10/16 00:16 BP 104 / 70; Pulse 76; Resp 15 S; Pulse Ox 99% on R/A; vc1 10/15 23:30 Body Mass Index 19.79 (68.04 kg, 185.42 cm) vc1 MDM: 10/15 22:46 Patient medically screened. pm1 10/16 00:08 Data reviewed: vital signs. Data interpreted: Pulse oximetry: on room air is 100 %. pm1 Interpretation: normal. Counseling: I had a detailed discussion with the patient and/or guardian regarding: the historical points, exam findings, and any diagnostic results supporting the discharge/admit diagnosis, lab results, radiology results, the need for outpatient follow up, to return to the emergency department if symptoms worsen or persist or if there are any questions or concerns that arise at home. 10/15 22:49 Order name: Basic Metabolic Panel pm1 10/15 22:49 Order name: CBC with Diff; Complete Time: 00:03 pm1 10/15 22:49 Order name: LFT's; Complete Time: 00:03 pm1 10/15 22:49 Order name: Magnesium; Complete Time: 00:03 pm1 10/15 22:49 Order name: Troponin HS; Complete Time: 00:03 pm1 10/15 22:50 Order name: Basic Metabolic Panel; Complete Time: 00:03 EDMS 10/15 22:49 Order name: XRAY Chest (1 view) pm1 10/15 22:49 Order name: EKG; Complete Time: 22:50 pm1 10/15 22:49 Order name: Cardiac monitoring; Complete Time: 23:09 pm1 10/15 22:49 Order name: EKG - Nurse/Tech; Complete Time: 23:08 pm1 10/15 22:49 Order name: IV Saline Lock; Complete Time: 23:27 pm1 10/15 22:49 Order name: Labs collected and sent; Complete Time: 23:28 pm1 10/15 22:49 Order name: O2 Per Protocol; Complete Time: 23:28 pm1 10/15 22:49 Order name: O2 Sat Monitoring; Complete Time: 23:28 pm1 Administered Medications: 10/15 23:28 Drug: NS 0.9% 1000 ml Route: IV; Rate: 1000 ml; Site: left antecubital; vc1 10/16 00:15 Follow up: Response: No adverse reaction; IV Status: Completed infusion; IV Intake: vc1 1000ml 10/15 23:28 Drug: Ketorolac 30 mg Route: IVP; Site: left antecubital; vc1 10/16 00:15 Follow up: Response: No adverse reaction; No change in condition; RASS: Restless (+1) vc1 10/15 23:48 Drug: hydrOXYzine 25 mg Route: PO; vc1 10/16 00:15 Follow up: Response: No adverse reaction; No change in condition 1 Disposition: 01:20 Co-signature as Attending Physician, Mat Alegria MD. rn Disposition Summary: 10/16/21 00:09 Discharge Ordered Location: Home pm1 Problem: new pm1 Symptoms: have improved pm1 Condition: Stable pm1 Diagnosis - Chest pain, unspecified pm1 Followup: pm1 - With: Emergency Department - When: As needed - Reason: Worsening of condition Followup: pm1 - With: Private Physician - When: 2 - 3 days - Reason: Recheck today's complaints, Continuance of care, Re-evaluation by your physician Discharge Instructions: - Discharge Summary Sheet pm1 - Nonspecific Chest Pain, Adult pm1 Forms: - Medication Reconciliation Form pm1 - Thank You Letter pm1 - Antibiotic Education pm1 - Prescription Opioid Use pm1 Signatures: Dispatcher [employer] EDMS Mat Alegria MD MD rn Marinas, Patrick, NP FASHION CONSULTANT pm1 Sharon Viveros RN RN vc1
[2021-10-16 01:26] VITALS: BP 104/70; O2SAT 99
--- NOTE | 2021-10-16 09:10 | EKG ---
Test Date: 2021-10-15 Test Time: 23:03:37 Consultant Dietitian: LIBORIO MEASUREMENT RESULTS: Intervals: Rate: 73 WI: 132 QRSD: 84 QT: 402 QTc: 442 Longs: P: 46 WI: 132 QRS: 54 T: 34 INTERPRETIVE STATEMENTS: Normal sinus rhythm Normal ECG Compared to ECG 10/12/2021 12:49:37 No significant changes Electronically Signed On 10-16-21 09:08:57 CAR DRIVER by Som Duffy
--- NOTE | 2021-10-16 14:41 | RAD REPORT ---
EXAM DESCRIPTION: RAD - Chest Single View - 10/15/2021 11:16 pm CLINICAL HISTORY: 36 years Male, CHEST PAIN COMPARISON: None. FINDINGS: Cardiomediastinal silhouette is normal. No focal consolidation, pneumothorax or pleural effusion. Osseous structures are unremarkable. IMPRESSION: No acute findings. Electronically signed by: Tang De Santiago MD 10/15/2021 11:31 PM BACK TUFTER Due to temporary technical issues with the PACS/Fluency reporting system, reports are being signed by the in house radiologists without review as a courtesy to insure prompt reporting. The interpreting radiologist is fully responsible for the content of the report.
== END 2021-10-16 00:36 | disposition home or self-care (01) ==
LOC: ER 22:12
DX: R07.9 Chest pain, unspecified (principal); I10 Essential (primary) hypertension; Z88.5 Allergy status to narcotic agent; Z91.030 Bee allergy status
CPT/HCPCS: 36415; 71045; 80048; 80076; 83735; 84484; 85025; 93005; 96361; 96374; 99285; J7030

== ENCOUNTER 2022-02-27 16:56 | Emergency (ER) | payer SELFPAY ==
[2022-02-27 18:32] LABS: Absolute Lymphocytes (CBC) 3.4 K/uL (0.7-4.9); Hematocrit 45.8 % (39.6-49.0); Lymphocytes % 39.6 % (15.3-44.8); MCV 94.5 fL (80-100); MPV 7.8 fL (7.6-11.3); RBC Red Blood Cell Count 4.85 M/uL (4.33-5.43)
[2022-02-27 18:33] LABS: Protime INR 1.08
[2022-02-27 18:43] LABS: Potassium 3.7 mmol/L (3.5-5.1); Troponin High Sensitivity 4.1 pg/mL (<58.9)
--- NOTE | 2022-02-27 18:49 | RAD REPORT ---
EXAM DESCRIPTION: RAD - Chest Single View - 02/27/2022 6:36 pm CLINICAL HISTORY: CHEST PAIN COMPARISON: Portable 10/15/2021 TECHNIQUE: AP portable chest image was obtained 02/27/2022 6:36 pm . FINDINGS: Lungs are clear. Heart and vasculature are normal. No measurable pleural effusion and no p neumothorax. No acute bony abnormality seen. No acute aortic findings suspected. IMPRESSION: No acute cardiopulmonary process.
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
[2022-02-27 20:30] VITALS: BP 175/101; TEMP 98; O2SAT 98
== END 2022-02-27 20:08 | disposition left against medical advice (07) ==
LOC: ER 16:56
DX: R07.9 Chest pain, unspecified (principal); F31.9 Bipolar disorder, unspecified; I10 Essential (primary) hypertension; Z88.5 Allergy status to narcotic agent; Z91.030 Bee allergy status
CPT/HCPCS: 36415; 71045; 80048; 84484; 85025; 85610

== ENCOUNTER 2022-04-19 18:52 | Emergency (ER) | payer BC, SELFPAY ==
--- NOTE | 2022-04-19 20:13 | RAD REPORT ---
EXAM DESCRIPTION: RAD - Hand Left 3 View - 04/19/2022 8:03 pm CLINICAL HISTORY: SWELLING COMPARISON: Hand Left 3 View dated 06/18/2017; Hand Left 3 View dated 02/22/2016 FINDINGS: Fracture is present involving the proximal phalanx of the third finger. Moderate soft tiss ue swelling.
[2022-04-19] MEDS ORDERED: IBUPROFEN 200 MG TAB PO ONE (20:14)
[2022-04-19] MEDS ORDERED: IBUPROFEN 400 MG TAB ONE (20:14)
--- NOTE | 2022-04-19 20:14 | RAD REPORT ---
EXAM DESCRIPTION: RAD - Hand Right 3 View - 04/19/2022 8:03 pm CLINICAL HISTORY: PAIN COMPARISON: Hand Right 3 View dated 05/23/2020; Hand Right 3 View dated 11/17/2018 FINDINGS: No acute fracture or dislocation. Soft tissue swelling is noted along the dorsum of the mi d hand.
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
[2022-04-20 00:28] VITALS: TEMP 98.9; O2SAT 100
[2022-04-20 00:35] VITALS: BP 118/80
== END 2022-04-19 22:13 | disposition home or self-care (01) ==
LOC: ER 18:52
PROC: 2W3KX1Z Immobilization of Left Finger using Splint (ICD-10-PCS; principal; 2022-04-19)
DX: S62.613A Displaced fracture of proximal phalanx of left middle finger, initial encounter for closed fracture (principal); I10 Essential (primary) hypertension; F31.9 Bipolar disorder, unspecified; F17.210 Nicotine dependence, cigarettes, uncomplicated; Z88.5 Allergy status to narcotic agent
CPT/HCPCS: 99283

== ENCOUNTER 2023-04-06 23:45 | Emergency (ER) | payer SELFPAY ==
--- NOTE | 2023-04-07 00:29 | EDPHYS ---
Physician Documentation [facility] Name: Aron Marrero Age: 37 yrs Sex: Male : 1985 Arrival Date: 04/06/2023 Time: 23:45 Bed 14 Private MD: ED Physician Jose Hammonds HPI: 04/07 02:25 This 37 yrs old Male presents to ER via Ambulatory with complaints of Having rt problems with his thoughts. 02:25 Patient presents to the ED with "having problems with with his thoughts." Patient rt states that he consistently hears his voice asking questions which he then answers. He states that his thought process is going fast. Denies any suicidal nation, homicidal ideation. Patient does report a bilateral foot pain but he states that he is homeless and walks constantly. Denies any discrete injury. Denies any other physical complaints. Symptoms are moderate severity, no other aggravating alleviating factors.. Historical: - Allergies: 00:05 Haldol; vc1 - PMHx: 00:05 ADD/ADHD; Bipolar disorder; Hypertension; Seizures; vc1 - PSHx: 00:05 None; vc1 - Immunization history:: Client reports having NOT received the Covid vaccine. - Social history:: Smoking status: unknown. - Family history:: not pertinent. ROS: 02:25 Constitutional: Negative for fever, chills, and weight loss, Cardiovascular: Negative rt for chest pain, palpitations, and edema, Respiratory: Negative for shortness of breath, cough, wheezing, and pleuritic chest pain, Abdomen/GI: Negative for abdominal pain, nausea, vomiting, diarrhea, and constipation. 02:25 MS/extremity: Positive for pain, Negative for injury or acute deformity. 02:25 Psych: Negative for depression, suicidal ideation. Exam: 02:25 Constitutional: This is a well developed, well nourished patient who is awake, alert, rt and in no acute distress. Head/Face: Normocephalic, atraumatic. Chest/axilla: Normal chest wall appearance and motion. Nontender with no deformity. No lesions are appreciated. Cardiovascular: Regular rate and rhythm with a normal S1 and S2. No gallops, murmurs, or rubs. Normal PMI, no JVD. No pulse deficits. Respiratory: Lungs have equal breath sounds bilaterally, clear to auscultation and percussion. No rales, rhonchi or wheezes noted. No increased work of breathing, no retractions or nasal flaring. Abdomen/GI: Soft, non-tender, with normal bowel sounds. No distension or tympany. No guarding or rebound. No evidence of tenderness throughout. 02:25 Musculoskeletal/extremity: Blisters noted to the bilateral feet, pulses, motor, sensation intact, no external evidence of infection.. 02:25 Neuro: Calm, cooperative, denies SI, HI. Vital Signs: 00:05 BP 161 / 106; Pulse 82; Resp 15; Temp 98.3; Pulse Ox 97% ; Weight 70.31 kg; Height 6 vc1 ft. 1 in. ; 00:05 Body Mass Index 20.45 (70.31 kg, 185.42 cm) vc1 MDM: 00:18 Patient medically screened. rt 02:25 Differential Diagnosis Schizoaffective disorder, suicidal ideation, homicidal ideation. rt Data reviewed: vital signs, nurses notes. Test considered but Not performed: Labs: Patient is not an imminent threat to himself or others, does not require involuntary inpatient hospitalization, labs not indicated. Care significantly affected by the following chronic conditions: Schizophrenia, bipolar. Counseling: I had a detailed discussion with the patient and/or guardian regarding the historical points, exam findings, and any diagnostic results supporting the discharge/admit diagnosis, the need for outpatient follow up. Administered Medications: 00:50 Drug: Acetaminophen PO 1000 mg Route: PO; vc1 01:04 Follow up: Response: Medication administered at discharge. vc1 Disposition Summary: 04/07/23 00:29 Discharge Ordered Location: Home rt Problem: an ongoing problem rt Symptoms: are unchanged rt Condition: Stable rt Diagnosis - Bilateral foot pain rt - Schizoaffective disorder rt Followup: rt - With: Private Physician - When: 5 - 6 days - Reason: Discharge Instructions: - Discharge Summary Sheet rt - Schizoaffective Disorder rt - Foot Pain rt Forms: - Medication Reconciliation Form rt - Thank You Letter rt - Antibiotic Education rt - Prescription Opioid Use rt - Patient Portal Instructions rt - Leadership Thank You Letter rt Signatures: Sharon Viveros RN RN vc1 Jose Hammonds MD MD rt
[2023-04-07] MEDS ORDERED: ACETAMINOPHEN 500 MG TAB ONE (00:52)
--- NOTE | 2023-04-07 01:28 | ER ---
Nurse's Notes [facility] Name: Aron Marrero Age: 37 yrs Sex: Male : 1985 Arrival Date: 04/06/2023 Time: 23:45 Bed 14 Private MD: Diagnosis: Bilateral foot pain;Schizoaffective disorder Presentation: 04/07 00:05 Chief complaint: Patient states: I keep asking myself questions and answering myself. vc1 I'm more tired tonight. I have some sores on my feet cause I walk a lot. 00:05 Coronavirus screen: Vaccine status: Patient reports being unvaccinated. Client denies vc1 travel out of the [place] in the last 14 days. At this time, the client does not indicate any symptoms associated with coronavirus-19. Ebola Screen: Patient negative for fever greater than or equal to 101.5 degrees Fahrenheit, and additional compatible Ebola Virus Disease symptoms Patient denies exposure to infectious person. Patient denies travel to an Ebola-affected area in the 21 days before illness onset. No symptoms or risks identified at this time. Initial Sepsis Screen: Does the patient meet any 2 criteria? No. Patient's initial sepsis screen is negative. Does the patient have a suspected source of infection? No. Patient's initial sepsis screen is negative. Risk Assessment: Do you want to hurt yourself or someone else? Patient reports no desire to harm self or others. Onset of symptoms is unknown. 00:05 Method Of Arrival: Ambulatory vc1 00:05 Acuity: JUSTINE 4 vc1 Triage Assessment: 00:05 General: Appears in no apparent distress. uncomfortable, slender, Behavior is vc1 cooperative. Pain: Complains of pain in right foot and left foot Pain does not radiate. Pain currently is 10 out of 10 on a pain scale. Quality of pain is described as burning, aching, Noted to be grimacing. EENT: No deficits noted. No signs and/or symptoms were reported regarding the EENT system. Neuro: Level of Consciousness is awake, alert, obeys commands, Oriented to person, place, time, situation, Appropriate for age. Cardiovascular: No deficits noted. Respiratory: Airway is patent Respiratory effort is even, unlabored, Respiratory pattern is regular, symmetrical. GI: No deficits noted. No signs and/or symptoms were reported involving the gastrointestinal system. : No deficits noted. No signs and/or symptoms were reported regarding the genitourinary system. Derm: Skin has blisters on top and bottom of 2nd and 3rd toes on right and left foot, pad of left and right foot. Wound noted Other: Abrasion to lateral side of right foot. Historical: - Allergies: 00:05 Haldol; vc1 - PMHx: 00:05 ADD/ADHD; Bipolar disorder; Hypertension; Seizures; vc1 - PSHx: 00:05 None; vc1 - Immunization history:: Client reports having NOT received the Covid vaccine. - Social history:: Smoking status: unknown. - Family history:: not pertinent. Screenin:05 [facility] ED Fall Risk Assessment (Adult) History of falling in the last 3 months, vc1 including since admission No falls in past 3 months (0 pts) Confusion or Disorientation No (0 pts) Intoxicated or Sedated No (0 pts) Impaired Gait No (0 pts) Mobility Assist Device Used No (0 pt) Altered Elimination No (0 pt) Score/Fall Risk Level 0 - 2 = Low Risk Oriented to surroundings, Maintained a safe environment, Educated pt \T\ family on fall prevention, incl call for assistance when getting out of bed. Abuse screen: Denies threats or abuse. Nutritional screening: No deficits noted. Tuberculosis screening: No symptoms or risk factors identified. Assessment: 00:30 Reassessment: See triage assessment. vc1 01:00 Reassessment: Patient and/or family updated on plan of care and expected duration. Pain vc1 level reassessed. Patient states symptoms have improved. Vital Signs: 00:05 BP 161 / 106; Pulse 82; Resp 15; Temp 98.3; Pulse Ox 97% ; Weight 70.31 kg; Height 6 vc1 ft. 1 in. ; 00:05 Body Mass Index 20.45 (70.31 kg, 185.42 cm) vc1 ED Course: 04/06 23:48 Patient arrived in ED. es 23:53 Jose Hammonds MD is Attending Physician. rt 04/07 00:05 Arm band placed on right wrist. vc1 00:05 Patient has correct armband on for positive identification. Bed in low position. Call vc1 light in reach. Pulse ox on. NIBP on. 00:45 No provider procedures requiring assistance completed. Wound care: to popped blisters vc1 located on right foot and left foot was cleaned with soap and water, dressed with Neosporin, band aid, Patient tolerated well. 00:50 Sharon Viveros RN is Primary Nurse. vc1 01:04 Patient did not have IV access during this emergency room visit. vc1 01:20 Triage completed. vc1 Administered Medications: 00:50 Drug: Acetaminophen PO 1000 mg Route: PO; vc1 01:04 Follow up: Response: Medication administered at discharge. vc1 Medication: 01:24 VIS not applicable for this client. vc1 Outcome: 00:29 Discharge ordered by . rt 01:04 Discharged to Unknown Pt states he is homeless, discharged to lobby with snacks, clean vc1 socks, picture of water, extra bandaids and triple antibiotic. 01:04 Condition: good 01:04 Discharge instructions given to patient, Instructed on discharge instructions, follow vc1 up and referral plans. wound care, Demonstrated understanding of instructions, follow-up care, wound care. 01:07 Patient left the ED. vc1 Signatures: Katy Agustin Vanessa, SUJATHA RN vc1 Jose Hammonds MD MD rt Corrections: (The following items were deleted from the chart) 01:28 01:27 Patient left the ED. vc1 vc1
[2023-04-07 01:36] VITALS: BP 161/106; TEMP 98.3; O2SAT 97
== END 2023-04-07 01:27 | disposition home or self-care (01) ==
LOC: ER 23:45
DX: M79.672 Pain in left foot (principal); M79.671 Pain in right foot; F20.9 Schizophrenia, unspecified; Z59.00 Homelessness unspecified
CPT/HCPCS: 99284

== ENCOUNTER 2024-12-11 10:32 | Emergency (ER) | payer SELFPAY ==
[2024-12-11] MEDS ORDERED: LIDOCAINE 2% INJ, 20 mL 20 ML ONE (11:26)
--- NOTE | 2024-12-11 11:36 | RAD REPORT ---
EXAMINATION: Hand Right 3 View VIEWS: As above CLINICAL INDICATION: Male, 39 years old. Pain;Swelling COMPARISON: No prior exam. IMPRESSION: Fifth metacarpal fracture involving the distal metaphysis with approximately 50 degrees of angulation and mild comminution.There is less than one third shaft width displacement. No extension to the MCP joint. Soft tissue swelling present. No radio opaque foreign body.
--- NOTE | 2024-12-11 13:11 | RAD REPORT ---
EXAMINATION: Hand Right 3 View VIEWS: Three views CLINICAL INDICATION: Male, 39 years old. post reduction COMPARISON: Earlier today IMPRESSION: Slight improved alignment following closed reduction with slight decreased although persistent angula tion. No new fractures.
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
--- NOTE | 2024-12-11 13:23 | ER ---
Nurse's Notes [facility] Name: Aron Marrero Age: 39 yrs Sex: Male : 1985 Arrival Date: 12/11/2024 Time: 10:32 Bed 5 Private MD: Diagnosis: Displaced fracture of neck of fifth metacarpal bone, right hand Presentation: 12/11 10:50 Chief complaint: Patient states: R hand pain and swelling that began 2 days ago after ss punching metal sign. Coronavirus screen: Client denies travel out of the [place] in the last 14 days. Ebola Screen: Patient denies exposure to infectious person. Patient denies travel to an Ebola-affected area in the 21 days before illness onset. Initial Sepsis Screen: Does the patient meet any 2 criteria? No. Patient's initial sepsis screen is negative. Does the patient have a suspected source of infection? No. Patient's initial sepsis screen is negative. Risk Assessment: Do you want to hurt yourself or someone else? Patient reports no desire to harm self or others. Onset of symptoms was December 09, 2024. 10:50 Method Of Arrival: Ambulatory ss 10:50 Acuity: JUSTINE 4 ss Historical: - Allergies: 10:51 Haldol; ss - Home Meds: 10:51 None [Active]; ss - PMHx: 10:51 ADD/ADHD; Bipolar disorder; Hypertension; Seizures; ss - Immunization history:: Adult Immunizations unknown. - Infectious Disease History:: Denies. - Family history:: not pertinent. - Hospitalizations: : No recent hospitalization is reported. - Social history:: Smoking status: unknown. Screenin:36 [facility] ED Fall Risk Assessment (Adult) History of falling in the last 3 months, cm10 including since admission No falls in past 3 months (0 pts) Confusion or Disorientation No (0 pts) Intoxicated or Sedated No (0 pts) Impaired Gait No (0 pts) Mobility Assist Device Used No (0 pt) Altered Elimination No (0 pt) Score/Fall Risk Level 0 - 2 = Low Risk Oriented to surroundings, Maintained a safe environment, Hourly rounding (assess needs \T\ fall precautionary measures) done. Abuse screen: Denies threats or abuse. Denies injuries from another. Nutritional screening: No deficits noted. Tuberculosis screening: No symptoms or risk factors identified. Assessment: 12:00 General: Appears in no apparent distress. comfortable, Behavior is calm, cooperative. cm10 Pain: Complains of pain in medial aspect of right hand Pain currently is 0 out of 10 on a pain scale. Neuro: No deficits noted. Level of Consciousness is awake, alert, obeys commands, Oriented to person, place, time, situation, Appropriate for age. Respiratory: No deficits noted. Airway is patent Respiratory effort is even, unlabored, Respiratory pattern is regular, symmetrical. Musculoskeletal: Swelling present in medial aspect of right hand. Vital Signs: 10:50 BP 157 / 90; Pulse 79; Resp 16; Temp 98.4(TE); Pulse Ox 99% on R/A; Weight 68.04 kg; ss Height 6 ft. 1 in. ; Pain 0/10; 13:41 BP 152 / 98; Pulse 72; Resp 15; Pulse Ox 100% ; cm10 10:50 Body Mass Index 19.79 (68.04 kg, 185.42 cm) ss 10:50 Pain Scale: Adult ss ED Course: 10:39 Patient arrived in ED. im 10:39 Mat Alegria MD is Attending Physician. rn 10:51 Triage completed. ss 10:51 Arm band placed on right wrist. ss 10:57 Loreto Barraza, SUJATHA is Primary Nurse. cm10 11:12 XRAY Hand RIGHT 3 View In Process Unspecified. EDMS 12:22 Wound care: to laceration was cleaned with Hibiclens, Patient tolerated well. cm10 12:34 Orthoglass splint: Ulnar gutter/Boxer splint applied on right forearm. cm10 12:34 Assist provider with reduction of right little finger using manipulation, Set up for cm10 procedure. Performed by Mat Alegria MD Patient tolerated well. Patient did not have IV access during this emergency room visit. 12:36 Patient has correct armband on for positive identification. cm10 13:00 Hand Right 3 View XRAY In Process Unspecified. EDMS 13:42 Provided Education on: Follow-up instructions. cm10 Administered Medications: 12:00 Drug: Lidocaine Infiltration (2 %) 1 vials 5 ml Infiltration once; to bedside Volume: 5 cm10 ml; Route: Infiltration; Medication: 12:36 VIS not applicable for this client. cm10 Outcome: 13:22 Discharge ordered by . rn 13:41 Discharged to home ambulatory, cm10 13:41 Condition: good 13:41 Discharge instructions given to patient, Instructed on discharge instructions, follow up and referral plans. medication usage, Demonstrated understanding of instructions, follow-up care, splint care, Prescriptions given X 1, 13:42 Patient left the ED. cm10 Signatures: Dispatcher [employer] EDMS Mat Alegria MD MD rn Blanchard, Shelby, RN RN Magy Marinelli Clarissa, RN RN cm10
[2024-12-13 17:38] VITALS: BP 152/98; O2SAT 100
[2024-12-13 17:39] VITALS: TEMP 98.4
== END 2024-12-11 13:42 | disposition home or self-care (01) ==
LOC: ER 10:32
DX: S62.336A Displaced fracture of neck of fifth metacarpal bone, right hand, initial encounter for closed fracture (principal)
CPT/HCPCS: 99284